=== PATIENT | male | born 1950 | race Caucasian/White ===

== ENCOUNTER 2017-12-04 09:59 | Inpatient (IN) | payer MEDICARE, OTHER ==
[~2017-12-04] VITALS: Ht 175.3 cm; Wt 79.4 kg
[~2017-12-04 09:59] MED LIST: 0.9 % SODIUM CHLORIDE 10 ML VIAL ONE
[2017-12-04] MEDS ORDERED: ASPI-803 PO (10:20)
[2017-12-04] MEDS ORDERED: normal saline 1000ml 1,000 ML IV ONE ×2 (10:40)
[2017-12-04 10:47] LABS: BASOPHILS % (AUTO) 0.7 % (0-1); EOSINOPHILS # (AUTO) 0.2 X10'3 (0-0.9); HEMATOCRIT 39.9 % (42.0-52.0); LYMPHOCYTES # (AUTO) 1.3 X10'3 (1.1-4.8); LYMPHOCYTES % (AUTO) 16.8 % (21-51); MEAN CORPUSCULAR HEMOGLOBIN 27.7 PG (27.0-31.0); MEAN CORPUSCULAR HGB CONC 32.5 % (33.0-36.5); MEAN CORPUSCULAR VOLUME 85.2 FL (78-98); MEAN PLATELET VOLUME 9.7 FL (7.4-10.4); MONOCYTES # (AUTO) 0.4 X10'3 (0-0.9); MONOCYTES % (AUTO) 5.8 % (2-12); NEUTROPHILS # (AUTO) 5.7 X10'3 (1.8-7.7); NEUTROPHILS % (AUTO) 74.7 % (42-75); PLATELET COUNT 371 X10'3 (140-440); RED BLOOD COUNT 4.68 X10'6 (4.70-6.10); RED CELL DISTRIBUTION WIDTH 14.3 % (11.5-14.5); WHITE BLOOD COUNT 7.6 X10'3 (4.5-11.0)
[2017-12-04 11:00] LABS: GIANT PLATELET FEW; INR 1.2 INR; LARGE PLATELETS FEW; PARTIAL THROMBOPLASTIN TIME 28 SECONDS (22-32); PLATELET ESTIMATE NORMAL; PROTHROMBIN TIME 12.2 SECONDS (9.0-12.0)
[2017-12-04 11:03] LABS: ALANINE AMINOTRANSFERASE 37 U/L (12-78); ALBUMIN 3.5 G/DL (3.4-5.0); ALBUMIN/GLOBULIN RATIO 0.9 (1.1-1.5); ALKALINE PHOSPHATASE 63 IU/L (46-116); ANION GAP 18 (8-16); ASPARTATE AMINO TRANSFERASE 40 U/L (10-37); BILIRUBIN,TOTAL 0.6 MG/DL (0.1-1.0); BLOOD UREA NITROGEN 12 MG/DL (7-18); BUN/CREATININE RATIO 8.7 (5.4-32.0); CALCIUM 8.9 MG/DL (8.5-10.1); CHLORIDE 89 MMOL/L (99-107); CREATININE 1.38 MG/DL (0.60-1.10); GLUCOSE 180 MG/DL (70-104); SODIUM 123 MMOL/L (135-145); TOTAL CARBON DIOXIDE 15.6 MMOL/L (24-32); TOTAL PROTEIN 7.6 G/DL (6.4-8.2); eGFR 52 ML/MIN
[2017-12-04] MEDS ORDERED: succinylcholine 20mg/ml inj IV ONE (11:04)
[2017-12-04] MEDS ORDERED: iohexol 350MG/ML 100ml bottle IV ONE (11:15)
[2017-12-04 11:16] LABS: ABG BASE EXCESS -13.4 mmol/L (-2.0-3.0); ABG HCO3 9.9 mmol/L (22.0-26.0); ABG OXYGEN SATURATION 97.2 % (95-98); ABG PCO2 (T) 18.7 mmHg (35.0-48.0); ABG PH (T) 7.343 (7.350-7.450); ABG PO2 (T) 99.2 mmHg (83-108); ALLEN'S TEST Positive; FCOHb 1.1 % (0.5-1.5); FMetHb 0.1 % (0.3-1.12); MINUTE VOLUME 18 L/min; RESPIRATORY RATE 18 b/min; RESPIRATORY RATE (OBSERVED) 18 b/min; TOTAL HEMOGLOBIN 12.9 G/dl (14.0-18.0)
[2017-12-04] MEDS: K, MAG and/or Phos replacement - Verify level? MC SCH (11:35)
[2017-12-04] MEDS ORDERED: magnesium 4gm in 100ml NS 100 ML IV PRN (11:35)
[2017-12-04] MEDS ORDERED: potassium Cl 40MEQ/NS 500ml 500 ML IV PRN ×2 (11:35)
[2017-12-04] MEDS ORDERED: magnesium 2GM in 50ml NS 50 ML IV PRN (11:35)
[2017-12-04] MEDS ORDERED: thiamine inj. 100 MG in normal saline 100ml IV soln 100 ML IV ONE (11:55)
[2017-12-04] MEDS ORDERED: OMEP40CA37 PO (11:59)
[2017-12-04] MEDS: pantoprazole 40 MG vial IV SCH (12:07)
[2017-12-04 12:27] LABS: CLARITY,URINE CLEAR (Clear); GLUCOSE, URINE NEGATIVE (Neg); KETONES,URINE NEGATIVE (Neg); LEUKOCYTE ESTERASE ,URINE NEGATIVE (Neg); NITRITES, URINE NEGATIVE (Neg); OCCULT BLOOD,URINE NEGATIVE (Neg); PH,URINE 5.5 (4.8-8.0); PROTEIN,URINE 30 mg/dl (Neg)
[2017-12-04 12:36] LABS: COLOR,URINE DARK YELLOW (Yellow); UA COLLECTION TYPE FOLEY CATH
[2017-12-04 12:40] LABS: BACTERIA,URINE NONE SEEN /HPF (Neg); MUCUS STRANDS FEW /LPF (Neg); RBC,URINE 0-2 /HPF (0-2); SQUAMOUS EPITHELIAL CELL,UR NONE SEEN /LPF (FEW); TRANSITIONAL EPI CELLS,URINE FEW /HPF; WBC,URINE 0-4 /HPF (0-4)
[2017-12-04 12:41] LABS: HYALINE CASTS >30 /LPF (NEGATIVE)
[2017-12-04 12:43] LABS: MAGNESIUM 1.8 MG/DL (1.5-2.4)
[2017-12-04] MEDS: sodium bicarbonate (8.4%) inj. 150 MEQ in dextrose 5%-water 1,000 ML IV SCH (13:03)
[2017-12-04] MEDS: folic acid inj. 2 MG, MVI, adult No.4 with vit. K 10 ML in dextrose 5% water 500ml 500 ML IV SCH ×3 (13:05)
[2017-12-04 19:00] VITALS: BP 112/76
[2017-12-04] MEDS: nicotine 21mg patch - 24 hr TD SCH (21:25)
[2017-12-04] MEDS: heparin, porcine 5000 units/ml vial SQ SCH (21:26)
[2017-12-04 22:14] VITALS: BP 110/88
[2017-12-04 23:07] VITALS: BP 107/87
[2017-12-05] VITALS (21 sets, daily range): BP systolic 102–130; BP diastolic 79–107
[2017-12-05] MEDS: temazepam 15mg capsule PO PRN
[2017-12-05 06:18] LABS: BASOPHILS % (AUTO) 0.2 % (0-1); EOSINOPHILS # (AUTO) 0.2 X10'3 (0-0.9); EOSINOPHILS % (AUTO) 1.9 % (0-6); HEMATOCRIT 36.8 % (42.0-52.0); HEMOGLOBIN 12.3 g/dl (14.0-17.9); LYMPHOCYTES # (AUTO) 1.2 X10'3 (1.1-4.8); LYMPHOCYTES % (AUTO) 14.6 % (21-51); MEAN CORPUSCULAR HEMOGLOBIN 28.2 PG (27.0-31.0); MEAN CORPUSCULAR HGB CONC 33.4 % (33.0-36.5); MEAN CORPUSCULAR VOLUME 84.3 FL (78-98); MEAN PLATELET VOLUME 10.2 FL (7.4-10.4); MONOCYTES # (AUTO) 0.7 X10'3 (0-0.9); MONOCYTES % (AUTO) 8.8 % (2-12); NEUTROPHILS # (AUTO) 6.2 X10'3 (1.8-7.7); NEUTROPHILS % (AUTO) 74.5 % (42-75); PLATELET COUNT 308 X10'3 (140-440); RED BLOOD COUNT 4.37 X10'6 (4.70-6.10); RED CELL DISTRIBUTION WIDTH 13.9 % (11.5-14.5); WHITE BLOOD COUNT 8.3 X10'3 (4.5-11.0)
[2017-12-05 06:31] LABS: INR 1.4 INR; PARTIAL THROMBOPLASTIN TIME 29 SECONDS (22-32); PROTHROMBIN TIME 14.5 SECONDS (9.0-12.0)
[2017-12-05 06:43] LABS: ALANINE AMINOTRANSFERASE 894 U/L (12-78); ALBUMIN 3.1 G/DL (3.4-5.0); ALBUMIN/GLOBULIN RATIO 0.9 (1.1-1.5); ALKALINE PHOSPHATASE 60 IU/L (46-116); ANION GAP 17 (8-16); BILIRUBIN,TOTAL 0.9 MG/DL (0.1-1.0); BLOOD UREA NITROGEN 14 MG/DL (7-18); BUN/CREATININE RATIO 14.6 (5.4-32.0); CALCIUM 8.4 MG/DL (8.5-10.1); CHLORIDE 91 MMOL/L (99-107); CREATININE 0.96 MG/DL (0.60-1.10); GLUCOSE 103 MG/DL (70-104); MAGNESIUM 1.6 MG/DL (1.5-2.4); POTASSIUM 4.6 MMOL/L (3.5-5.1); SODIUM 127 MMOL/L (135-145); TOTAL CARBON DIOXIDE 19.5 MMOL/L (24-32); TOTAL PROTEIN 6.6 G/DL (6.4-8.2); eGFR 79 ML/MIN
[2017-12-05 07:02] LABS: ASPARTATE AMINO TRANSFERASE 1695 U/L (10-37)
[2017-12-05 07:21] LABS: PLATELET ESTIMATE NORMAL
[2017-12-05 07:22] LABS: GIANT PLATELET FEW; HYPOCHROMASIA 1+; LARGE PLATELETS FEW; POLYCHROMASIA 1+
[2017-12-05 07:23] LABS: ELLIPTOCYTES 1+; TARGET CELLS 1+
[2017-12-05] MEDS: pantoprazole 40 MG vial IV SCH (08:00)
[2017-12-05] MEDS: heparin, porcine 5000 units/ml vial SQ SCH ×2 (08:01→20:02)
[2017-12-05] MEDS: nicotine 21mg patch - 24 hr TD SCH (08:01)
[2017-12-05] MEDS: folic acid inj. 2 MG, MVI, adult No.4 with vit. K 10 ML in dextrose 5% water 500ml 500 ML IV SCH ×3 (08:02)
[2017-12-05] MEDS: multivitamins, therapeutics tablet PO SCH (08:02)
[2017-12-05] MEDS: folic acid 1mg tablet PO SCH (08:02)
[2017-12-05] MEDS: thiamine 100mg tablet PO SCH (08:02)
[2017-12-05] MEDS: K, MAG and/or Phos replacement - Verify level? MC SCH (08:03)
[2017-12-05] MEDS: sodium bicarbonate (8.4%) inj. 150 MEQ in dextrose 5%-water 1,000 ML IV SCH (08:03)
[2017-12-05] MEDS ORDERED: levoFLOXACIN-Levaquin 500mg/D5 100 ML IV ONE (09:45)
[2017-12-05] MEDS: DOBUTamine-DoBUTrex 500mg/D5W 250 ML IV SCH (10:22)
[2017-12-05] MEDS: ipratropium/albuterol 3ml nebule NEB SCH ×4 (11:39→23:00)
[2017-12-05 14:45] LABS: ABG BASE EXCESS -1.2 mmol/L (-2.0-3.0); ABG HCO3 18.9 mmol/L (22.0-26.0); ABG OXYGEN SATURATION 95.7 % (95-98); ABG PCO2 (T) 20.8 mmHg (35.0-48.0); ABG PH (T) 7.576 (7.350-7.450); ABG PO2 (T) 76.2 mmHg (83-108); ALLEN'S TEST Positive; FCOHb 0.3 % (0.5-1.5); FMetHb 0.3 % (0.3-1.12); FO2Hb 95.1 % (94-100); RESPIRATORY RATE 12 b/min; TOTAL HEMOGLOBIN 12.5 G/dl (14.0-18.0)
[2017-12-05] MEDS ORDERED: LORazepam 2 mg/ml vial IV PRN (17:55)
[2017-12-05] MEDS: lactobacillus rhamnosus 10,000 MMU CELLS/CAPSULE PO SCH (20:02)
[2017-12-05] MEDS ORDERED: haloperidol lactate 5mg/ml inj IM ONE (21:50)
[2017-12-06] VITALS (24 sets, daily range): BP systolic 99–129; BP diastolic 72–98
[2017-12-06] MEDS: sodium bicarbonate (8.4%) inj. 150 MEQ in dextrose 5%-water 1,000 ML IV SCH ×2 (02:14→07:10)
[2017-12-06 04:46] LABS: ABG BASE EXCESS -0.2 mmol/L (-2.0-3.0); ABG HCO3 21.4 mmol/L (22.0-26.0); ABG OXYGEN SATURATION 96.3 % (95-98); ABG PCO2 (T) 25.8 mmHg (35.0-48.0); ABG PH (T) 7.534 (7.350-7.450); ABG PO2 (T) 79.8 mmHg (83-108); ALLEN'S TEST Positive; FCOHb 0.4 % (0.5-1.5); FMetHb 0.1 % (0.3-1.12); FO2Hb 95.8 % (94-100); PATIENT TEMPERATURE 36.3; RESPIRATORY RATE 12 b/min; TOTAL HEMOGLOBIN 12.8 G/dl (14.0-18.0)
[2017-12-06 05:31] LABS: INR 1.4 INR; PARTIAL THROMBOPLASTIN TIME 29 SECONDS (22-32)
[2017-12-06 05:37] LABS: BASOPHILS # (AUTO) 0.1 X10'3 (0-0.2); BASOPHILS % (AUTO) 0.7 % (0-1); EOSINOPHILS # (AUTO) 0.1 X10'3 (0-0.9); EOSINOPHILS % (AUTO) 0.8 % (0-6); HEMATOCRIT 35.9 % (42.0-52.0); HEMOGLOBIN 12.1 g/dl (14.0-17.9); LYMPHOCYTES # (AUTO) 1.2 X10'3 (1.1-4.8); LYMPHOCYTES % (AUTO) 12.3 % (21-51); MEAN CORPUSCULAR HGB CONC 33.6 % (33.0-36.5); MEAN CORPUSCULAR VOLUME 83.2 FL (78-98); MEAN PLATELET VOLUME 10.7 FL (7.4-10.4); MONOCYTES # (AUTO) 0.9 X10'3 (0-0.9); MONOCYTES % (AUTO) 8.7 % (2-12); NEUTROPHILS # (AUTO) 7.6 X10'3 (1.8-7.7); NEUTROPHILS % (AUTO) 77.5 % (42-75); PLATELET COUNT 283 X10'3 (140-440); RED BLOOD COUNT 4.32 X10'6 (4.70-6.10); RED CELL DISTRIBUTION WIDTH 14.3 % (11.5-14.5); WHITE BLOOD COUNT 9.9 X10'3 (4.5-11.0)
[2017-12-06 06:40] LABS: ALBUMIN 2.8 G/DL (3.4-5.0); ALBUMIN/GLOBULIN RATIO 0.8 (1.1-1.5); ALKALINE PHOSPHATASE 69 IU/L (46-116); ANION GAP 14 (8-16); BILIRUBIN,TOTAL 0.9 MG/DL (0.1-1.0); BLOOD UREA NITROGEN 18 MG/DL (7-18); BUN/CREATININE RATIO 14.9 (5.4-32.0); CALCIUM 8.4 MG/DL (8.5-10.1); CHLORIDE 89 MMOL/L (99-107); CREATININE 1.21 MG/DL (0.60-1.10); GLUCOSE 117 MG/DL (70-104); MAGNESIUM 1.5 MG/DL (1.5-2.4); POTASSIUM 4.3 MMOL/L (3.5-5.1); SODIUM 123 MMOL/L (135-145); TOTAL CARBON DIOXIDE 20.4 MMOL/L (24-32); TOTAL PROTEIN 6.3 G/DL (6.4-8.2); eGFR 60 ML/MIN
[2017-12-06 06:43] LABS: ALANINE AMINOTRANSFERASE 1315 U/L (12-78); ASPARTATE AMINO TRANSFERASE 1909 U/L (10-37)
[2017-12-06 06:58] LABS: PLATELET ESTIMATE NORMAL; POLYCHROMASIA 1+; TARGET CELLS FEW
[2017-12-06 06:59] LABS: SCHISTOCYTES FEW
[2017-12-06] MEDS ORDERED: levoFLOXACIN-Levaquin 500mg/D5 100 ML IV SCH (08:00)
[2017-12-06] MEDS: lactobacillus rhamnosus 10,000 MMU CELLS/CAPSULE PO SCH ×2 (08:22→19:44)
[2017-12-06] MEDS: thiamine 100mg tablet PO SCH (08:23)
[2017-12-06] MEDS: folic acid 1mg tablet PO SCH (08:23)
[2017-12-06] MEDS: multivitamins, therapeutics tablet PO SCH (08:24)
[2017-12-06] MEDS: pantoprazole 40mg Tablet.DR PO SCH (08:24)
[2017-12-06] MEDS: heparin, porcine 5000 units/ml vial SQ SCH ×2 (08:26→19:51)
[2017-12-06] MEDS: nicotine 21mg patch - 24 hr TD SCH (08:27)
[2017-12-06] MEDS: K, MAG and/or Phos replacement - Verify level? MC SCH (08:29)
[2017-12-06] MEDS: ipratropium/albuterol 3ml nebule NEB SCH ×6 (08:48→23:27)
[2017-12-06] MEDS ORDERED: furosemide 40mg/4ml inj IV ONE (08:50)
[2017-12-06] MEDS ORDERED: FLU VACC QS2017-18 36MOS UP/PF 60 MCG/0.5 ML SYRINGE IMVAC ONE (10:00)
[2017-12-06] MEDS ORDERED: pneumococcal 23-VAL P-sac vacc 25 mcg/0.5ml vial IMVAC ONE (10:00)
[2017-12-06] MEDS: levoFLOXACIN 500mg tablet PO SCH (11:17)
[2017-12-06] MEDS: methylPREDNISolone sod succ 125mg/2ml vial IV SCH ×2 (14:50→19:44)
[2017-12-06] MEDS: furosemide 40mg/4ml inj IV SCH (16:47)
[2017-12-06] MEDS ORDERED: sodium phosphate inj. 30 MMOL in dextrose 5%-water 250 ML IV PRN (17:28)
[2017-12-06] MEDS ORDERED: sodium phosphate inj. 15 MMOL in dextrose 5%-water 150 ML IV PRN (17:28)
[2017-12-06] MEDS ORDERED: potassium Cl 40MEQ/NS 500ml 500 ML IV PRN ×2 (17:30)
[2017-12-06] MEDS ORDERED: Neutra Phos packet PO PRN (17:30)
[2017-12-06] MEDS ORDERED: potassium Cl 20 mEq SR tablet PO PRN ×2 (17:30)
[2017-12-06] MEDS: spironolactone 25 MG tablet PO SCH (19:45)
[2017-12-06] MEDS: temazepam 15mg capsule PO PRN (22:27)
[2017-12-07] VITALS (18 sets, daily range): BP systolic 88–138; BP diastolic 66–96
[2017-12-07] MEDS: furosemide 40mg/4ml inj IV SCH ×3 (00:44→20:55)
[2017-12-07] MEDS: DOBUTamine-DoBUTrex 500mg/D5W 250 ML IV SCH (00:51)
[2017-12-07] MEDS: methylPREDNISolone sod succ 125mg/2ml vial IV SCH ×4 (02:03→20:55)
[2017-12-07] MEDS: ipratropium/albuterol 3ml nebule NEB SCH ×6 (02:43→23:43)
[2017-12-07 06:00] LABS: BASOPHILS % (AUTO) 0 % (0-1); EOSINOPHILS # (AUTO) 0.1 X10'3 (0-0.9); EOSINOPHILS % (AUTO) 1.2 % (0-6); HEMATOCRIT 34.6 % (42.0-52.0); HEMOGLOBIN 11.5 g/dl (14.0-17.9); LYMPHOCYTES # (AUTO) 0.4 X10'3 (1.1-4.8); LYMPHOCYTES % (AUTO) 4.4 % (21-51); MEAN CORPUSCULAR HEMOGLOBIN 27.7 PG (27.0-31.0); MEAN CORPUSCULAR HGB CONC 33.2 % (33.0-36.5); MEAN CORPUSCULAR VOLUME 83.3 FL (78-98); MEAN PLATELET VOLUME 10.4 FL (7.4-10.4); MONOCYTES # (AUTO) 0.1 X10'3 (0-0.9); MONOCYTES % (AUTO) 1.6 % (2-12); NEUTROPHILS # (AUTO) 7.6 X10'3 (1.8-7.7); NEUTROPHILS % (AUTO) 92.8 % (42-75); PLATELET COUNT 273 X10'3 (140-440); RED BLOOD COUNT 4.16 X10'6 (4.70-6.10); RED CELL DISTRIBUTION WIDTH 14.1 % (11.5-14.5); WHITE BLOOD COUNT 8.2 X10'3 (4.5-11.0)
[2017-12-07 06:10] LABS: INR 1.3 INR; PARTIAL THROMBOPLASTIN TIME 27 SECONDS (22-32); PROTHROMBIN TIME 13.3 SECONDS (9.0-12.0)
[2017-12-07 06:17] LABS: LARGE PLATELETS FEW; PLATELET ESTIMATE NORMAL
[2017-12-07 06:18] LABS: TARGET CELLS FEW
[2017-12-07 06:30] LABS: ALANINE AMINOTRANSFERASE 1115 U/L (12-78); ALBUMIN 2.9 G/DL (3.4-5.0); ALBUMIN/GLOBULIN RATIO 0.9 (1.1-1.5); ALKALINE PHOSPHATASE 71 IU/L (46-116); ANION GAP 12 (8-16); ASPARTATE AMINO TRANSFERASE 965 U/L (10-37); BILIRUBIN,TOTAL 0.8 MG/DL (0.1-1.0); BLOOD UREA NITROGEN 17 MG/DL (7-18); BUN/CREATININE RATIO 13.9 (5.4-32.0); CALCIUM 8.6 MG/DL (8.5-10.1); CHLORIDE 90 MMOL/L (99-107); CREATININE 1.22 MG/DL (0.60-1.10); GLUCOSE 132 MG/DL (70-104); MAGNESIUM 1.4 MG/DL (1.5-2.4); PHOSPHORUS 3.8 MG/DL (2.3-4.5); SODIUM 129 MMOL/L (135-145); TOTAL CARBON DIOXIDE 27.3 MMOL/L (24-32); TOTAL PROTEIN 6.3 G/DL (6.4-8.2); eGFR 60 ML/MIN
[2017-12-07] MEDS: spironolactone 25 MG tablet PO SCH ×2 (07:55→20:55)
[2017-12-07] MEDS: folic acid 1mg tablet PO SCH (07:56)
[2017-12-07] MEDS: lactobacillus rhamnosus 10,000 MMU CELLS/CAPSULE PO SCH ×2 (07:56→20:56)
[2017-12-07] MEDS: multivitamins, therapeutics tablet PO SCH (07:56)
[2017-12-07] MEDS: pantoprazole 40mg Tablet.DR PO SCH (07:56)
[2017-12-07] MEDS: thiamine 100mg tablet PO SCH (07:56)
[2017-12-07] MEDS: nicotine 21mg patch - 24 hr TD SCH (07:57)
[2017-12-07] MEDS: K and/or MAG REPLACEMENT MC SCH (08:00)
[2017-12-07] MEDS: K, MAG and/or Phos replacement - Verify level? MC SCH (08:00)
[2017-12-07] MEDS: heparin, porcine 5000 units/ml vial SQ SCH ×2 (08:13→20:57)
[2017-12-07] MEDS: levoFLOXACIN 500mg tablet PO SCH (10:38)
[2017-12-07] MEDS ORDERED: carVEDilol 3.125mg tablet PO ONE (11:20)
[2017-12-07] MEDS ORDERED: pneumococcal 23-VAL P-sac vacc 25 mcg/0.5ml vial IMVAC ONE (12:00)
[2017-12-07] MEDS ORDERED: carVEDilol 3.125mg tablet PO SCH (20:00)
[2017-12-07] MEDS: carVEDilol 3.125mg tablet PO SCH (20:56)
[2017-12-08] VITALS (11 sets, daily range): BP systolic 93–120; BP diastolic 72–94
[2017-12-08] MEDS: temazepam 15mg capsule PO PRN ×2 (00:02→23:40)
[2017-12-08] MEDS: methylPREDNISolone sod succ 125mg/2ml vial IV SCH ×4 (02:26→19:54)
[2017-12-08 02:43] LABS: INR 1.2 INR; PARTIAL THROMBOPLASTIN TIME 25 SECONDS (22-32); PROTHROMBIN TIME 12.5 SECONDS (9.0-12.0)
[2017-12-08 02:47] LABS: ALANINE AMINOTRANSFERASE 983 U/L (12-78); ALBUMIN 2.8 G/DL (3.4-5.0); ALBUMIN/GLOBULIN RATIO 0.8 (1.1-1.5); ALKALINE PHOSPHATASE 67 IU/L (46-116); ANION GAP 10 (8-16); ASPARTATE AMINO TRANSFERASE 598 U/L (10-37); BILIRUBIN,TOTAL 0.8 MG/DL (0.1-1.0); BLOOD UREA NITROGEN 26 MG/DL (7-18); BUN/CREATININE RATIO 20.3 (5.4-32.0); CALCIUM 8.5 MG/DL (8.5-10.1); CHLORIDE 89 MMOL/L (99-107); CREATININE 1.28 MG/DL (0.60-1.10); GLUCOSE 146 MG/DL (70-104); MAGNESIUM 2.3 MG/DL (1.5-2.4); PHOSPHORUS 4.7 MG/DL (2.3-4.5); SODIUM 124 MMOL/L (135-145); TOTAL CARBON DIOXIDE 25.1 MMOL/L (24-32); TOTAL PROTEIN 6.2 G/DL (6.4-8.2); eGFR 56 ML/MIN
[2017-12-08 02:58] LABS: BASOPHILS % (AUTO) 0 % (0-1); EOSINOPHILS # (AUTO) 0.1 X10'3 (0-0.9); HEMATOCRIT 33.2 % (42.0-52.0); HEMOGLOBIN 10.9 g/dl (14.0-17.9); LYMPHOCYTES # (AUTO) 0.4 X10'3 (1.1-4.8); LYMPHOCYTES % (AUTO) 3.1 % (21-51); MEAN CORPUSCULAR HEMOGLOBIN 27.5 PG (27.0-31.0); MEAN CORPUSCULAR HGB CONC 32.8 % (33.0-36.5); MEAN PLATELET VOLUME 10.7 FL (7.4-10.4); MONOCYTES # (AUTO) 0.4 X10'3 (0-0.9); MONOCYTES % (AUTO) 3.2 % (2-12); NEUTROPHILS # (AUTO) 12.2 X10'3 (1.8-7.7); NEUTROPHILS % (AUTO) 92.7 % (42-75); PLATELET COUNT 254 X10'3 (140-440); RED BLOOD COUNT 3.95 X10'6 (4.70-6.10); RED CELL DISTRIBUTION WIDTH 14.1 % (11.5-14.5); WHITE BLOOD COUNT 13.1 X10'3 (4.5-11.0)
[2017-12-08] MEDS: ipratropium/albuterol 3ml nebule NEB SCH ×6 (03:46→23:10)
[2017-12-08] MEDS: K and/or MAG REPLACEMENT MC SCH (07:34)
[2017-12-08] MEDS: K, MAG and/or Phos replacement - Verify level? MC SCH (07:35)
[2017-12-08] MEDS: pantoprazole 40mg Tablet.DR PO SCH (07:45)
[2017-12-08] MEDS: nicotine 21mg patch - 24 hr TD SCH (07:46)
[2017-12-08] MEDS: thiamine 100mg tablet PO SCH (07:46)
[2017-12-08] MEDS: lactobacillus rhamnosus 10,000 MMU CELLS/CAPSULE PO SCH ×2 (07:46→19:56)
[2017-12-08] MEDS: multivitamins, therapeutics tablet PO SCH (07:46)
[2017-12-08] MEDS: folic acid 1mg tablet PO SCH (07:46)
[2017-12-08] MEDS: carVEDilol 3.125mg tablet PO SCH ×2 (07:46→19:57)
[2017-12-08] MEDS: heparin, porcine 5000 units/ml vial SQ SCH ×2 (07:48→19:55)
[2017-12-08] MEDS: furosemide 40mg/4ml inj IV SCH ×2 (07:48→19:53)
[2017-12-08] MEDS: spironolactone 25 MG tablet PO SCH ×2 (07:48→19:56)
[2017-12-08] MEDS ORDERED: lisinopril 2.5mg tablet PO SCH (08:00)
[2017-12-08] MEDS: levoFLOXACIN 500mg tablet PO SCH (12:52)
[2017-12-08] MEDS: DOBUTamine-DoBUTrex 500mg/D5W 250 ML IV SCH ×2 (14:17→17:00)
[2017-12-08] MEDS ORDERED: potassium Cl 20 mEq SR tablet PO ONE (20:00)
[2017-12-08] MEDS: lisinopril 2.5mg tablet PO SCH (21:24)
[2017-12-08] MEDS: HYDROcodone/acetaminophen 10/325mg tab PO PRN (23:41)
[2017-12-09] VITALS (24 sets, daily range): BP systolic 87–108; BP diastolic 52–83
[2017-12-09] MEDS: methylPREDNISolone sod succ 125mg/2ml vial IV SCH ×3 (02:04→13:52)
[2017-12-09] MEDS: ipratropium/albuterol 3ml nebule NEB SCH ×6 (03:00→23:09)
[2017-12-09 05:06] LABS: BASOPHILS % (AUTO) 0 % (0-1); EOSINOPHILS # (AUTO) 0.1 X10'3 (0-0.9); EOSINOPHILS % (AUTO) 1.2 % (0-6); HEMATOCRIT 33.6 % (42.0-52.0); LYMPHOCYTES # (AUTO) 0.6 X10'3 (1.1-4.8); MEAN CORPUSCULAR HEMOGLOBIN 27.4 PG (27.0-31.0); MEAN CORPUSCULAR HGB CONC 32.6 % (33.0-36.5); MONOCYTES # (AUTO) 0.4 X10'3 (0-0.9); MONOCYTES % (AUTO) 3.6 % (2-12); NEUTROPHILS # (AUTO) 9.5 X10'3 (1.8-7.7); NEUTROPHILS % (AUTO) 89.2 % (42-75); PLATELET COUNT 226 X10'3 (140-440); RED CELL DISTRIBUTION WIDTH 13.8 % (11.5-14.5); WHITE BLOOD COUNT 10.6 X10'3 (4.5-11.0)
[2017-12-09 05:17] LABS: INR 1.2 INR; PARTIAL THROMBOPLASTIN TIME 26 SECONDS (22-32); PROTHROMBIN TIME 12.8 SECONDS (9.0-12.0)
[2017-12-09 05:55] LABS: ALANINE AMINOTRANSFERASE 800 U/L (12-78); ALBUMIN 2.8 G/DL (3.4-5.0); ALBUMIN/GLOBULIN RATIO 0.8 (1.1-1.5); ALKALINE PHOSPHATASE 64 IU/L (46-116); ANION GAP 12 (8-16); ASPARTATE AMINO TRANSFERASE 355 U/L (10-37); BILIRUBIN,TOTAL 0.8 MG/DL (0.1-1.0); BLOOD UREA NITROGEN 41 MG/DL (7-18); BUN/CREATININE RATIO 23.4 (5.4-32.0); CALCIUM 8.4 MG/DL (8.5-10.1); CHLORIDE 88 MMOL/L (99-107); CREATININE 1.75 MG/DL (0.60-1.10); GLUCOSE 131 MG/DL (70-104); MAGNESIUM 2.1 MG/DL (1.5-2.4); PHOSPHORUS 5.8 MG/DL (2.3-4.5); POTASSIUM 4.3 MMOL/L (3.5-5.1); SODIUM 126 MMOL/L (135-145); TOTAL CARBON DIOXIDE 26.4 MMOL/L (24-32); TOTAL PROTEIN 6.3 G/DL (6.4-8.2); eGFR 39 ML/MIN
[2017-12-09 06:24] LABS: LARGE PLATELETS FEW; PLATELET ESTIMATE NORMAL
[2017-12-09] MEDS: K and/or MAG REPLACEMENT MC SCH (06:53)
[2017-12-09] MEDS: K, MAG and/or Phos replacement - Verify level? MC SCH (06:53)
[2017-12-09] MEDS: furosemide 40mg/4ml inj IV SCH (08:00)
[2017-12-09] MEDS: carVEDilol 3.125mg tablet PO SCH ×2 (08:00→19:58)
[2017-12-09] MEDS: spironolactone 25 MG tablet PO SCH (08:30)
[2017-12-09] MEDS: nicotine 21mg patch - 24 hr TD SCH (09:58)
[2017-12-09] MEDS: multivitamins, therapeutics tablet PO SCH (09:58)
[2017-12-09] MEDS: pantoprazole 40mg Tablet.DR PO SCH (09:58)
[2017-12-09] MEDS: lactobacillus rhamnosus 10,000 MMU CELLS/CAPSULE PO SCH ×2 (09:59→19:59)
[2017-12-09] MEDS: folic acid 1mg tablet PO SCH (09:59)
[2017-12-09] MEDS: thiamine 100mg tablet PO SCH (10:00)
[2017-12-09] MEDS: HYDROcodone/acetaminophen 10/325mg tab PO PRN ×2 (10:01→23:30)
[2017-12-09] MEDS: heparin, porcine 5000 units/ml vial SQ SCH ×2 (10:02→20:01)
[2017-12-09] MEDS ORDERED: aminophylline 250mg/10ml inj. IV PRN (10:15)
[2017-12-09] MEDS ORDERED: regadenoson 0.4mg/5ml syringe IV ONE ×2 (10:15→14:43)
[2017-12-09] MEDS ORDERED: metoprolol tartrate 1mg/ml inj IV PRN (10:15)
[2017-12-09] MEDS ORDERED: nitroGLYCERIN 0.4mg SUBLingual tab SL PRN (10:15)
[2017-12-09] MEDS: DOBUTamine-DoBUTrex 500mg/D5W 250 ML IV SCH ×2 (10:26→16:30)
[2017-12-09] MEDS: levoFLOXACIN 500mg tablet PO SCH (10:33)
[2017-12-09] MEDS: aspirin 325mg tablet PO SCH (10:34)
[2017-12-09] MEDS ORDERED: aminophylline inj. 0 ML IV ONE (14:43)
[2017-12-09] MEDS: methylPREDNISolone sod succ/PF 40mg inj. IV SCH (19:58)
[2017-12-09] MEDS: lisinopril 2.5mg tablet PO SCH (21:00)
[2017-12-09 21:11] LABS: ANION GAP 7 (8-16); BLOOD UREA NITROGEN 42 MG/DL (7-18); CALCIUM 8.6 MG/DL (8.5-10.1); CHLORIDE 89 MMOL/L (99-107); CREATININE 1.45 MG/DL (0.60-1.10); GLUCOSE 137 MG/DL (70-104); POTASSIUM 4.5 MMOL/L (3.5-5.1); SODIUM 126 MMOL/L (135-145); TOTAL CARBON DIOXIDE 29.8 MMOL/L (24-32); eGFR 49 ML/MIN
[2017-12-09 21:29] LABS: MAGNESIUM 2.1 MG/DL (1.5-2.4)
[2017-12-10] VITALS (10 sets, daily range): BP systolic 92–104; BP diastolic 69–86
[2017-12-10] MEDS: ipratropium/albuterol 3ml nebule NEB SCH ×3 (03:00→11:26)
[2017-12-10 06:02] LABS: HEMATOCRIT 34.9 % (42.0-52.0); HEMOGLOBIN 11.5 g/dl (14.0-17.9); MEAN CORPUSCULAR HEMOGLOBIN 27.7 PG (27.0-31.0); MEAN CORPUSCULAR VOLUME 84.1 FL (78-98); MEAN PLATELET VOLUME 11.2 FL (7.4-10.4); PLATELET COUNT 215 X10'3 (140-440); RED BLOOD COUNT 4.15 X10'6 (4.70-6.10); RED CELL DISTRIBUTION WIDTH 13.8 % (11.5-14.5); WHITE BLOOD COUNT 11.6 X10'3 (4.5-11.0)
[2017-12-10 06:27] LABS: INR 1.2 INR; PARTIAL THROMBOPLASTIN TIME 25 SECONDS (22-32)
[2017-12-10 06:28] LABS: ALANINE AMINOTRANSFERASE 594 U/L (12-78); ALBUMIN 2.8 G/DL (3.4-5.0); ALBUMIN/GLOBULIN RATIO 0.8 (1.1-1.5); ALKALINE PHOSPHATASE 58 IU/L (46-116); ANION GAP 7 (8-16); ASPARTATE AMINO TRANSFERASE 172 U/L (10-37); BLOOD UREA NITROGEN 39 MG/DL (7-18); BUN/CREATININE RATIO 27.7 (5.4-32.0); CALCIUM 8.4 MG/DL (8.5-10.1); CHLORIDE 88 MMOL/L (99-107); CREATININE 1.41 MG/DL (0.60-1.10); GLUCOSE 127 MG/DL (70-104); PHOSPHORUS 4.4 MG/DL (2.3-4.5); POTASSIUM 3.8 MMOL/L (3.5-5.1); SODIUM 123 MMOL/L (135-145); TOTAL CARBON DIOXIDE 28.3 MMOL/L (24-32); TOTAL PROTEIN 6.2 G/DL (6.4-8.2); eGFR 50 ML/MIN
[2017-12-10 06:42] LABS: TOTAL CELLS COUNTED 100
[2017-12-10 06:43] LABS: ANISOCYTOSIS 1+; LARGE PLATELETS FEW; MICROCYTOSIS 1+; PLATELET ESTIMATE NORMAL; TARGET CELLS 1+
[2017-12-10] MEDS: nicotine 21mg patch - 24 hr TD SCH (07:35)
[2017-12-10] MEDS: methylPREDNISolone sod succ/PF 40mg inj. IV SCH (07:37)
[2017-12-10] MEDS: furosemide 40mg/4ml inj IV SCH (07:38)
[2017-12-10] MEDS: multivitamins, therapeutics tablet PO SCH (07:39)
[2017-12-10] MEDS: aspirin 325mg tablet PO SCH (07:39)
[2017-12-10] MEDS: pantoprazole 40mg Tablet.DR PO SCH (07:39)
[2017-12-10] MEDS: folic acid 1mg tablet PO SCH (07:40)
[2017-12-10] MEDS: thiamine 100mg tablet PO SCH (07:40)
[2017-12-10] MEDS: carVEDilol 3.125mg tablet PO SCH (07:40)
[2017-12-10] MEDS: lactobacillus rhamnosus 10,000 MMU CELLS/CAPSULE PO SCH (07:40)
[2017-12-10] MEDS: spironolactone 25 MG tablet PO SCH (07:44)
[2017-12-10] MEDS: heparin, porcine 5000 units/ml vial SQ SCH (07:45)
[2017-12-10] MEDS: HYDROcodone/acetaminophen 10/325mg tab PO PRN (07:45)
[2017-12-10] MEDS: K, MAG and/or Phos replacement - Verify level? MC SCH (08:00)
[2017-12-10] MEDS ORDERED: levoFLOXACIN 500mg tablet PO SCH (11:00)
[2017-12-10] MEDS ORDERED: bisacodyl 5mg tablet.DR PO PRN (15:10)
[2017-12-10] MEDS ORDERED: LEVO500T89 PO (15:31)
[2017-12-10] MEDS ORDERED: HEPA500017 SQ (15:31)
[2017-12-10] MEDS ORDERED: PRED10TA23 PO (15:31)
[2017-12-10] MEDS ORDERED: LISI2.5T2 PO (15:31)
[2017-12-10] MEDS ORDERED: FURO40TA4 PO (15:31)
[2017-12-10] MEDS ORDERED: HYDR-3972 PO (15:31)
[2017-12-10] MEDS ORDERED: TEMA15CA PO (15:31)
[2017-12-10] MEDS ORDERED: SPIR25TA3 PO (15:31)
[2017-12-10] MEDS ORDERED: COR3.125T PO (15:31)
[2017-12-10] MEDS ORDERED: NITR0.4T51 SL (15:31)
[2017-12-10] MEDS ORDERED: IPRA3AMP9 NEB (15:31)
[2017-12-10] MEDS ORDERED: NICO-687 TD (15:31)
[2017-12-10] MEDS ORDERED: ASPI-1 PO (15:31)
[2017-12-10] MEDS ORDERED: docusate sod 100mg capsule PO SCH (20:00)
== END 2017-12-10 18:00 | DRG 291 ==
LOC: ER 09:59 → ED HOLD 11:35 → EDBEDREQ 18:30 → ICU 2S 19:15 → PCU 3S 12-07 13:00
PROVIDERS: ADMIT Internal Medicine Critical Care Medicine; ATTEND Internal Medicine Critical Care Medicine
PROC: 5A09457 Assistance with Respiratory Ventilation, 24-96 Consecutive Hours, Continuous Positive Airway Pressure (ICD-10-PCS; principal; 2017-12-04)
PROC: 4A02XM4 Measurement of Cardiac Total Activity, External Approach (ICD-10-PCS; 2017-12-09)
PROC: 3E073KZ Introduction of Other Diagnostic Substance into Coronary Artery, Percutaneous Approach (ICD-10-PCS; 2017-12-09)
DX: I11.0 Hypertensive heart disease with heart failure (principal); J96.21 Acute and chronic respiratory failure with hypoxia; N17.9 Acute kidney failure, unspecified; E86.0 Dehydration; E87.2 Acidosis; I48.0 Paroxysmal atrial fibrillation; I42.9 Cardiomyopathy, unspecified; E87.1 Hypo-osmolality and hyponatremia; B19.20 Unspecified viral hepatitis C without hepatic coma; F10.20 Alcohol dependence, uncomplicated; J98.11 Atelectasis; I50.23 Acute on chronic systolic (congestive) heart failure; F17.210 Nicotine dependence, cigarettes, uncomplicated; Z79.82 Long term (current) use of aspirin; Z79.899 Other long term (current) drug therapy; Z88.0 Allergy status to penicillin; Z71.41 Alcohol abuse counseling and surveillance of alcoholic; Z23 Encounter for immunization; Z71.6 Tobacco abuse counseling
CPT/HCPCS: 36415; 36600; 71045; 78452; 80048; 80053; 81001; 82803; 82948; 83605; 83735; 83880; 84100; 84145; 84439; 84443; 84484; 85018; 85025; 85610; 85730; 87040; 87070; 90732; 93005; 93017; 93306; 94640; 94660; 94667; 94668; 94760; 96360; 97110; 97116; 97162; 97530; 99291; A4315; A6213; A6257; A9500; C1758; C9113; J0280; J0330; J1250; J1630; J1644; J1940; J1956; J2060; J2785; J2920; J2930; J3475; J3490; J7030; J7060; Q2037; Q9967

== ENCOUNTER 2021-09-15 12:15 | Inpatient (IN) | payer OTHER, MEDICARE ==
[~2021-09-15] VITALS: Ht 182.9 cm; Wt 68.2 kg
[~2021-09-15 12:15] MED LIST changes: -0.9 % SODIUM CHLORIDE 10 ML VIAL ONE; +ASPI-1 PO; +CARV25TA PO; +ERGO500014 PO; +FOLI1TAB2 PO; +LISI2.5T14 PO; +NICO-687 TD; +NITR0.4T51 SL; +heparin 10,000 units/1 ML INJ ONE; +sodium bicarbonate (8.4%) 1 mEq/ml syringe ONE
[2021-09-15 13:03] LABS: BASOPHILS # (AUTO) 0.1 X10'3 (0-0.2); BASOPHILS % (AUTO) 1.1 % (0-1); EOSINOPHILS # (AUTO) 0.5 X10'3 (0-0.9); HEMATOCRIT 33.7 % (42.0-52.0); HEMOGLOBIN 10.8 g/dl (14.0-17.9); LYMPHOCYTES # (AUTO) 1.8 X10'3 (1.1-4.8); MEAN CORPUSCULAR HEMOGLOBIN 25.7 PG (27.0-31.0); MEAN CORPUSCULAR VOLUME 80.3 FL (78-98); MEAN PLATELET VOLUME 9.3 FL (7.4-10.4); MONOCYTES # (AUTO) 0.6 X10'3 (0-0.9); MONOCYTES % (AUTO) 6.9 % (2-12); NEUTROPHILS # (AUTO) 5.3 X10'3 (1.8-7.7); PLATELET COUNT 313 X10'3 (140-440); RED BLOOD COUNT 4.19 X10'6 (4.70-6.10); RED CELL DISTRIBUTION WIDTH 19.5 % (11.5-14.5); WHITE BLOOD COUNT 8.3 X10'3 (4.5-11.0)
[2021-09-15 13:18] LABS: APTT 29 SECONDS (22-32); D-DIMER 2.06 MG/L FEU (0-0.50)
[2021-09-15 13:21] LABS: ALANINE AMINOTRANSFERASE 26 U/L (12-78); ALBUMIN 3.6 G/DL (3.4-5.0); ALBUMIN/GLOBULIN RATIO 0.9 (1.1-1.5); ALKALINE PHOSPHATASE 99 IU/L (46-116); ANION GAP 10 (8-16); ASPARTATE AMINO TRANSFERASE 23 U/L (10-37); BILIRUBIN,TOTAL 0.4 MG/DL (0.1-1.0); BLOOD UREA NITROGEN 12 MG/DL (7-18); BUN/CREATININE RATIO 11.4 (5.4-32.0); CALCIUM 9.2 MG/DL (8.5-10.1); CHLORIDE 105 MMOL/L (99-107); CREATININE 1.05 MG/DL (0.60-1.10); GLUCOSE 94 MG/DL (70-104); POTASSIUM 3.8 MMOL/L (3.5-5.1); SODIUM 138 MMOL/L (135-145); TOTAL CARBON DIOXIDE 23.3 MMOL/L (24-32); TOTAL PROTEIN 7.4 G/DL (6.4-8.2); eGFR 70 ML/MIN
[2021-09-15] MEDS ORDERED: iohexol 350MG/ML 100ml bottle IV ONE (13:34)
[2021-09-15 13:50] LABS: ANISOCYTOSIS 2+; PLATELET ESTIMATE NORMAL
[2021-09-15 13:51] LABS: BURR CELLS 2+; SCHISTOCYTES 1+
[2021-09-15 13:52] LABS: ELLIPTOCYTES FEW; TARGET CELLS FEW
[2021-09-15 13:53] LABS: ACANTHOCYTES 1+
[2021-09-15] MEDS ORDERED: furosemide 10 MG/1 ML 10ml inj IV ONE (14:30)
[2021-09-15] MEDS ORDERED: furosemide 40mg/4ml inj IV ONE (14:30)
[2021-09-15] MEDS ORDERED: MULT-1085 PO (15:26)
[2021-09-15] MEDS ORDERED: PANT20TA18 PO (15:26)
[2021-09-15] MEDS ORDERED: HYDR-3965 PO (15:26)
[2021-09-15] MEDS ORDERED: MAGN400O6 PO (15:26)
[2021-09-15] MEDS ORDERED: CLOP75TA9 PO (15:26)
[2021-09-15] MEDS ORDERED: ASPI-920 PO (15:26)
[2021-09-15] MEDS ORDERED: BISA10SU60 RC (15:26)
[2021-09-15] MEDS ORDERED: GABA300C PO (15:26)
[2021-09-15] MEDS ORDERED: ATOR-2 PO (15:26)
[2021-09-15] MEDS ORDERED: METO-539 PO (15:26)
[2021-09-15] MEDS ORDERED: heparin 10,000 units/1 ML INJ IV ONE ×2 (16:00→16:05)
[2021-09-15] MEDS: heparin 25,000 UNIT/250ml bag 250 ML IV SCH (16:18)
[2021-09-15] MEDS ORDERED: bisacodyl 10mg suppository rectal RC PRN ×2 (18:20→18:25)
[2021-09-15] MEDS ORDERED: magnesium hydroxide 30ml (MOM) UD suspension PO PRN ×2 (18:20→18:25)
[2021-09-15] MEDS ORDERED: magnesium Cl slow-release 64mg tablet PO PRN (18:25)
[2021-09-15] MEDS ORDERED: diphenhydrAMINE 25mg capsule PO PRN (18:25)
[2021-09-15] MEDS ORDERED: potassium CL 10mEq/100ml bag 100 ML IV PRN (18:25)
[2021-09-15] MEDS ORDERED: magnesium 4gm in 100ml NS 100 ML IV PRN (18:25)
[2021-09-15] MEDS ORDERED: morphine 2 MG/ML inj. syringe IV PRN ×2 (18:25)
[2021-09-15] MEDS ORDERED: acetaminophen 325mg tablet PO PRN ×2 (18:25)
[2021-09-15] MEDS ORDERED: potassium Cl 20 mEq SR tablet PO PRN (18:25)
[2021-09-15] MEDS ORDERED: ondansetron/PF 4mg/2ml inj IV PRN (18:25)
[2021-09-15] MEDS ORDERED: magnesium 2GM in 50ml NS 50 ML IV PRN (18:25)
[2021-09-15] MEDS ORDERED: mag hydrox/Alum hydrox/simeth 30ml oral suspension PO PRN (18:25)
[2021-09-15] MEDS ORDERED: HYDROcodone/acetaminophen 5mg/325mg tablet PO PRN (18:25)
[2021-09-15] MEDS ORDERED: acetaminophen 650mg rectal suppository RC PRN (18:25)
[2021-09-15] MEDS: normal saline 1000ml 1,000 ML IV SCH (19:18)
[2021-09-15] MEDS: HYDROcodone/acetaminophen 10/325mg tab PO PRN (19:32)
[2021-09-15] MEDS: K and/or MAG REPLACEMENT MC SCH (20:00)
[2021-09-15] MEDS: docusate sod 100mg capsule PO SCH (20:09)
[2021-09-15] MEDS: furosemide 10 MG/1 ML 10ml inj IV SCH (20:10)
[2021-09-15] MEDS: atorvastatin 20mg tablet PO SCH (20:58)
[2021-09-15 23:00] LABS: APTT 51 SECONDS (22-32)
[2021-09-15 23:25] VITALS: BP 108/79
[2021-09-16] VITALS (7 sets, daily range): BP systolic 73–89; BP diastolic 59–62
[2021-09-16] MEDS: gabapentin 300mg capsule PO SCH ×3 (00:10→15:00)
[2021-09-16 04:21] LABS: BASOPHILS % (AUTO) 0.7 % (0-1); EOSINOPHILS # (AUTO) 0.5 X10'3 (0-0.9); EOSINOPHILS % (AUTO) 6.3 % (0-6); HEMOGLOBIN 9.8 g/dl (14.0-17.9); LYMPHOCYTES # (AUTO) 1.9 X10'3 (1.1-4.8); LYMPHOCYTES % (AUTO) 25.8 % (21-51); MEAN CORPUSCULAR HEMOGLOBIN 25.9 PG (27.0-31.0); MEAN CORPUSCULAR HGB CONC 32.7 g/dL (33.0-36.5); MEAN CORPUSCULAR VOLUME 79.2 FL (78-98); MEAN PLATELET VOLUME 9.1 FL (7.4-10.4); MONOCYTES # (AUTO) 0.6 X10'3 (0-0.9); MONOCYTES % (AUTO) 8.1 % (2-12); NEUTROPHILS # (AUTO) 4.4 X10'3 (1.8-7.7); NEUTROPHILS % (AUTO) 59.1 % (42-75); PLATELET COUNT 264 X10'3 (140-440); RED BLOOD COUNT 3.79 X10'6 (4.70-6.10); RED CELL DISTRIBUTION WIDTH 19.5 % (11.5-14.5); WHITE BLOOD COUNT 7.4 X10'3 (4.5-11.0)
[2021-09-16 04:40] LABS: ALANINE AMINOTRANSFERASE 16 U/L (12-78); ALBUMIN/GLOBULIN RATIO 0.9 (1.1-1.5); ALKALINE PHOSPHATASE 84 IU/L (46-116); ANION GAP 9 (8-16); ASPARTATE AMINO TRANSFERASE 17 U/L (10-37); BILIRUBIN,TOTAL 0.3 MG/DL (0.1-1.0); BLOOD UREA NITROGEN 14 MG/DL (7-18); BUN/CREATININE RATIO 11.9 (5.4-32.0); CALCIUM 8.9 MG/DL (8.5-10.1); CHLORIDE 103 MMOL/L (99-107); CHOL/HDL RATIO 3.9 (0.00-4.99); CHOLESTEROL 157 MG/DL (0-200); CREATININE 1.18 MG/DL (0.60-1.10); GLUCOSE 87 MG/DL (70-104); HDL CHOLESTEROL 40 MG/DL (35-60); LDL CHOLESTEROL 97 MG/DL (50-100); MAGNESIUM 1.5 MG/DL (1.5-2.4); PHOSPHORUS 4.8 MG/DL (2.3-4.5); POTASSIUM 3.4 MMOL/L (3.5-5.1); SODIUM 135 MMOL/L (135-145); TOTAL CARBON DIOXIDE 23.4 MMOL/L (24-32); TOTAL PROTEIN 6.2 G/DL (6.4-8.2); TRIGLYCERIDES 54 MG/DL (20-135); eGFR 61 ML/MIN
[2021-09-16] MEDS ORDERED: heparin 10,000 units/1 ML INJ IV PRN (04:55)
[2021-09-16] MEDS: furosemide 10 MG/1 ML 10ml inj IV SCH ×2 (08:00→21:28)
[2021-09-16] MEDS: K and/or MAG REPLACEMENT MC SCH ×2 (08:00→20:00)
[2021-09-16] MEDS: metoprolol succinate 25mg (24-HOUR) SR. Tablet PO SCH (08:00)
[2021-09-16] MEDS ORDERED: pantoprazole 40mg Tablet.DR PO SCH (08:00)
[2021-09-16] MEDS: multivitamins, therapeutics tablet PO SCH (08:05)
[2021-09-16] MEDS: docusate sod 100mg capsule PO SCH ×2 (08:05→21:28)
[2021-09-16] MEDS: aspirin 81mg tab.chew PO SCH (08:05)
[2021-09-16] MEDS: HYDROcodone/acetaminophen 10/325mg tab PO PRN ×3 (08:07→21:56)
[2021-09-16] MEDS ORDERED: insulin glargine (Lantus) pen - multi-dose SQ PRN (08:40)
[2021-09-16] MEDS ORDERED: dextrose 50%-water 50ml dispensing syringe IV PRN (08:40)
[2021-09-16] MEDS ORDERED: MESSAGE TO PHARMACY IJ ONE (08:40)
[2021-09-16] MEDS ORDERED: MESSAGE TO NURSING PO ONE ×5 (08:40→10:00)
[2021-09-16 10:06] LABS: APTT 47 SECONDS (22-32)
[2021-09-16] MEDS: mupirocin 2% nasal ointment 1gm UD NS SCH (20:00)
[2021-09-16] MEDS: potassium Cl 20 mEq SR tablet PO PRN (21:27)
[2021-09-16] MEDS: atorvastatin 20mg tablet PO SCH (21:28)
[2021-09-16] MEDS: heparin 25,000 UNIT/250ml bag 250 ML IV SCH (21:48)
[2021-09-17] VITALS (9 sets, daily range): BP systolic 82–102; BP diastolic 52–76
[2021-09-17] MEDS: gabapentin 300mg capsule PO SCH ×3 (00:29→23:51)
[2021-09-17 06:34] LABS: BASOPHILS % (AUTO) 0.4 % (0-1); EOSINOPHILS # (AUTO) 0.5 X10'3 (0-0.9); EOSINOPHILS % (AUTO) 6.4 % (0-6); HEMATOCRIT 29.1 % (42.0-52.0); HEMOGLOBIN 9.7 g/dl (14.0-17.9); LYMPHOCYTES # (AUTO) 1.8 X10'3 (1.1-4.8); LYMPHOCYTES % (AUTO) 22.6 % (21-51); MEAN CORPUSCULAR HEMOGLOBIN 26.1 PG (27.0-31.0); MEAN CORPUSCULAR HGB CONC 33.3 g/dL (33.0-36.5); MEAN CORPUSCULAR VOLUME 78.4 FL (78-98); MEAN PLATELET VOLUME 9.4 FL (7.4-10.4); MONOCYTES # (AUTO) 0.6 X10'3 (0-0.9); MONOCYTES % (AUTO) 7.6 % (2-12); PLATELET COUNT 262 X10'3 (140-440); RED BLOOD COUNT 3.71 X10'6 (4.70-6.10); RED CELL DISTRIBUTION WIDTH 20.2 % (11.5-14.5); WHITE BLOOD COUNT 7.9 X10'3 (4.5-11.0)
[2021-09-17] MEDS: potassium Cl 20 mEq SR tablet PO PRN (06:51)
[2021-09-17 07:07] LABS: ALANINE AMINOTRANSFERASE 16 U/L (12-78); ALBUMIN 3.1 G/DL (3.4-5.0); ALBUMIN/GLOBULIN RATIO 0.9 (1.1-1.5); ALKALINE PHOSPHATASE 88 IU/L (46-116); ANION GAP 11 (8-16); ASPARTATE AMINO TRANSFERASE 15 U/L (10-37); BILIRUBIN,TOTAL 0.3 MG/DL (0.1-1.0); BLOOD UREA NITROGEN 16 MG/DL (7-18); BUN/CREATININE RATIO 14.5 (5.4-32.0); CALCIUM 8.9 MG/DL (8.5-10.1); CHLORIDE 101 MMOL/L (99-107); GLUCOSE 86 MG/DL (70-104); MAGNESIUM 1.5 MG/DL (1.5-2.4); PHOSPHORUS 5.6 MG/DL (2.3-4.5); SODIUM 135 MMOL/L (135-145); TOTAL PROTEIN 6.6 G/DL (6.4-8.2); eGFR 66 ML/MIN
[2021-09-17] MEDS: HYDROcodone/acetaminophen 10/325mg tab PO PRN ×3 (07:18→23:47)
[2021-09-17] MEDS: pantoprazole 40mg Tablet.DR PO SCH (07:18)
[2021-09-17] MEDS: docusate sod 100mg capsule PO SCH ×2 (07:18→20:56)
[2021-09-17] MEDS: aspirin 81mg tab.chew PO SCH (07:18)
[2021-09-17] MEDS: multivitamins, therapeutics tablet PO SCH (07:18)
[2021-09-17] MEDS: K and/or MAG REPLACEMENT MC SCH ×2 (07:20→20:00)
[2021-09-17] MEDS: mupirocin 2% nasal ointment 1gm UD NS SCH ×2 (07:21→20:00)
[2021-09-17] MEDS: metoprolol succinate 25mg (24-HOUR) SR. Tablet PO SCH (08:00)
[2021-09-17 10:36] LABS: ABG BASE EXCESS -1.7 mmol/L (-2.0-2.0); ABG HCO3 21.3 mmol/L (22.0-26.0); ABG OXYGEN SATURATION 94.4 % (94-97); ABG PCO2 (T) 30.2 mmHg (35.0-48.0); ABG PO2 (T) 72.1 mmHg (75.0-100.0); ALLEN'S TEST POSITIVE; FCOHb 0.3 % (0.0-3.9); FMetHb 0.2 % (0.0-1.5); FO2Hb 93.9 % (94-97); TOTAL HEMOGLOBIN 10.7 G/dl (14.0-18.0)
[2021-09-17] MEDS ORDERED: HUMAN IV ONE ×4 (13:15)
[2021-09-17] MEDS ORDERED: INSULIN REGULAR IV ONE ×4 (13:15)
[2021-09-17] MEDS ORDERED: SODIUM CHLORIDE IV ONE ×4 (13:15)
[2021-09-17] MEDS ORDERED: [UNRECOGNIZED DRUG - OTHER] IV ONE ×4 (13:15)
[2021-09-17] MEDS ORDERED: glucagon, human recombinant 1mg kit SUBCUT PRN (14:00)
[2021-09-17] MEDS ORDERED: dextrose 50%-water 50ml dispensing syringe IV PRN ×2 (14:00)
[2021-09-17] MEDS ORDERED: dextrose ORAL solution 15 GM/59 ML bottle PO PRN ×2 (14:00)
[2021-09-17] MEDS ORDERED: insulin Lispro (HumaLOG) vial - multi-dose SQ SCH (14:00)
[2021-09-17] MEDS ORDERED: famotidine 20mg tablet PO ONE (17:10)
[2021-09-17] MEDS: normal saline 1000ml 1,000 ML IV SCH (18:25)
[2021-09-17] MEDS: atorvastatin 20mg tablet PO SCH (20:56)
[2021-09-17] MEDS: insulin glargine (Lantus) pen - multi-dose SQ SCH (21:00)
[2021-09-18] VITALS (21 sets, daily range): BP systolic 79–152; BP diastolic 48–89
[2021-09-18] MEDS ORDERED: vancomycin/NS 1 GM ADD-VANTAGE 250 ML IV ONE (05:30)
[2021-09-18] MEDS ORDERED: Insulin Reg/NS 100units/100mL 100 ML IV SCH ×2 (05:30)
[2021-09-18] MEDS ORDERED: cefazolin/dext.iso 2gm/50ml 50 ML IV ONE (05:30)
[2021-09-18] MEDS ORDERED: gabapentin 400mg capsule PO ONE (05:30)
[2021-09-18] MEDS ORDERED: epiNEPHrine 1 mg/ml inj ONE (05:31)
[2021-09-18 06:11] LABS: BASOPHILS % (AUTO) 0.4 % (0-1); EOSINOPHILS # (AUTO) 0.4 X10'3 (0-0.9); EOSINOPHILS % (AUTO) 6.1 % (0-6); HEMATOCRIT 28.5 % (42.0-52.0); HEMOGLOBIN 9.5 g/dl (14.0-17.9); LYMPHOCYTES # (AUTO) 1.2 X10'3 (1.1-4.8); MEAN CORPUSCULAR HGB CONC 33.3 g/dL (33.0-36.5); MEAN CORPUSCULAR VOLUME 78.2 FL (78-98); MEAN PLATELET VOLUME 9.5 FL (7.4-10.4); MONOCYTES # (AUTO) 0.6 X10'3 (0-0.9); MONOCYTES % (AUTO) 8.6 % (2-12); NEUTROPHILS # (AUTO) 4.8 X10'3 (1.8-7.7); NEUTROPHILS % (AUTO) 67.9 % (42-75); PLATELET COUNT 255 X10'3 (140-440); RED BLOOD COUNT 3.64 X10'6 (4.70-6.10); RED CELL DISTRIBUTION WIDTH 19.5 % (11.5-14.5); WHITE BLOOD COUNT 7.1 X10'3 (4.5-11.0)
[2021-09-18 06:43] LABS: ALANINE AMINOTRANSFERASE 18 U/L (12-78); ALBUMIN 2.8 G/DL (3.4-5.0); ALBUMIN/GLOBULIN RATIO 0.8 (1.1-1.5); ALKALINE PHOSPHATASE 80 IU/L (46-116); ANION GAP 8 (8-16); ASPARTATE AMINO TRANSFERASE 15 U/L (10-37); BILIRUBIN,TOTAL 0.3 MG/DL (0.1-1.0); BLOOD UREA NITROGEN 13 MG/DL (7-18); CALCIUM 8.5 MG/DL (8.5-10.1); CHLORIDE 103 MMOL/L (99-107); CREATININE 0.93 MG/DL (0.60-1.10); GLUCOSE 141 MG/DL (70-104); MAGNESIUM 1.4 MG/DL (1.5-2.4); PHOSPHORUS 4.7 MG/DL (2.3-4.5); POTASSIUM 4.1 MMOL/L (3.5-5.1); SODIUM 135 MMOL/L (135-145); TOTAL CARBON DIOXIDE 23.8 MMOL/L (24-32); TOTAL PROTEIN 6.2 G/DL (6.4-8.2); eGFR 81 ML/MIN
[2021-09-18] MEDS ORDERED: famotidine 20mg tablet PO ONE (06:45)
[2021-09-18] MEDS ORDERED: LORazepam 2 mg/ml vial IV ONE (06:45)
[2021-09-18] MEDS: metoprolol succinate 25mg (24-HOUR) SR. Tablet PO SCH (08:00)
[2021-09-18] MEDS: aspirin 81mg tab.chew PO SCH (08:00)
[2021-09-18] MEDS ORDERED: SUFENTANIL CITRATE 50 MCG/ML 2ml ampule IV ONE (08:00)
[2021-09-18] MEDS: K and/or MAG REPLACEMENT MC SCH ×2 (08:00→20:00)
[2021-09-18] MEDS: gabapentin 300mg capsule PO SCH ×2 (08:00→16:00)
[2021-09-18] MEDS ORDERED: MIDAZolam 1 MG/ML 5ML VIAL ONE (08:00)
[2021-09-18] MEDS: multivitamins, therapeutics tablet PO SCH (08:00)
[2021-09-18] MEDS: docusate sod 100mg capsule PO SCH ×2 (08:00→20:00)
[2021-09-18] MEDS ORDERED: propofol inj 20 ML IV ONE (08:00)
[2021-09-18] MEDS: mupirocin 2% nasal ointment 1gm UD NS SCH ×2 (08:00→20:33)
[2021-09-18] MEDS: pantoprazole 40mg Tablet.DR PO SCH (08:00)
[2021-09-18] MEDS ORDERED: sevoflurane 250ml liquid IH ONE (08:34)
[2021-09-18] MEDS ORDERED: protamine sulf. 10mg/ml inj. IV ONE (08:34)
[2021-09-18 09:26] LABS: ABG BASE EXCESS -7.1 mmol/L (-2.0-2.0); ABG HCO3 18.3 mmol/L (22.0-26.0); ABG OXYGEN SATURATION 95.7 % (94-97); ABG PCO2 36.3 mmHg (35.0-48.0); ABG PO2 89.2 mmHg (75.0-100.0); CL (ABG) 107 mmol/L (98-110); FCOHb 0.5 % (0.0-3.9); FMetHb 0.3 % (0.0-1.5); FO2Hb 94.9 % (94-97); GLUCOSE (ABG) 80 mg/dl (70-105); IONIZED CA (ABG) 1.15 mmol/L (1.10-1.43); K (ABG) 4.1 mmol/L (3.5-5.0); TOTAL HEMOGLOBIN 10.1 G/dl (14.0-18.0)
[2021-09-18 09:55] LABS: ABG BASE EXCESS VENOUS -7.7 mmol/L (-2.0 - 2.0); ABG HCO3 VENOUS 19.9 mmol/L (21.0-28.0); ABG PCO2 VENOUS 50.2 mmHg (41.0-54.0); ABG PO2 VENOUS 48.3 mmHg (25.0-35.0); CL (ABG) 106 mmol/L (98-110); FCOHb VENOUS 0.8 %; FHHb VENOUS 26.9 %; FMetHb VENOUS 0.1 % (0.0 - 0.5); FO2Hb VENOUS 72.2 %; GLUCOSE (ABG) 115 mg/dl (70-105); IONIZED CA (ABG) 1.13 mmol/L (1.10-1.43); K (ABG) 3.5 mmol/L (3.5-5.0); TOTAL HEMOGLOBIN 10.2 G/dl (14.0-18.0)
[2021-09-18 10:35] LABS: ABG BASE EXCESS VENOUS -10.8 mmol/L (-2.0 - 2.0); ABG HCO3 VENOUS 17.7 mmol/L (21.0-28.0); ABG PO2 VENOUS 41.8 mmHg (25.0-35.0); CL (ABG) 105 mmol/L (98-110); FCOHb VENOUS 0.9 %; FHHb VENOUS 41.3 %; FMetHb VENOUS 0.1 % (0.0 - 0.5); FO2Hb VENOUS 57.7 %; GLUCOSE (ABG) 213 mg/dl (70-105); IONIZED CA (ABG) 1.11 mmol/L (1.10-1.43); K (ABG) 3.9 mmol/L (3.5-5.0); TOTAL HEMOGLOBIN 9.8 G/dl (14.0-18.0)
[2021-09-18 11:24] LABS: ABG BASE EXCESS -7.1 mmol/L (-2.0-2.0); ABG HCO3 19.4 mmol/L (22.0-26.0); ABG OXYGEN SATURATION 88.6 % (94-97); ABG PCO2 43.5 mmHg (35.0-48.0); ABG PO2 68.8 mmHg (75.0-100.0); CL (ABG) 107 mmol/L (98-110); FCOHb 1.3 % (0.0-3.9); FMetHb 0.3 % (0.0-1.5); FO2Hb 87.2 % (94-97); GLUCOSE (ABG) 261 mg/dl (70-105); IONIZED CA (ABG) 1.05 mmol/L (1.10-1.43); K (ABG) 3.3 mmol/L (3.5-5.0); TOTAL HEMOGLOBIN 8.4 G/dl (14.0-18.0)
[2021-09-18 11:39] LABS: ABG BASE EXCESS VENOUS -6.6 mmol/L (-2.0 - 2.0); ABG PCO2 VENOUS 52.4 mmHg (41.0-54.0); ABG PO2 VENOUS 41.7 mmHg (25.0-35.0); CL (ABG) 107 mmol/L (98-110); FCOHb VENOUS 1.1 %; FHHb VENOUS 36.8 %; FMetHb VENOUS 0.3 % (0.0 - 0.5); FO2Hb VENOUS 61.8 %; GLUCOSE (ABG) 248 mg/dl (70-105); IONIZED CA (ABG) 1.04 mmol/L (1.10-1.43); K (ABG) 3.3 mmol/L (3.5-5.0); TOTAL HEMOGLOBIN 8.8 G/dl (14.0-18.0)
[2021-09-18] MEDS ORDERED: potassium CL 10mEq/100ml bag 100 ML IV PRN (11:50)
[2021-09-18] MEDS ORDERED: bisacodyl 10mg suppository rectal RC PRN (11:50)
[2021-09-18] MEDS ORDERED: dextrose 50%-water 50ml dispensing syringe IV PRN (11:50)
[2021-09-18] MEDS ORDERED: sodium phosphate inj. 15 MMOL in dextrose 5%-water 250 ML IV PRN (11:50)
[2021-09-18] MEDS ORDERED: potassium Cl 20 mEq SR tablet PO PRN (11:50)
[2021-09-18] MEDS ORDERED: magnesium citrate 296ml oral solution PO PRN (11:50)
[2021-09-18] MEDS ORDERED: Neutra Phos packet PO PRN (11:50)
[2021-09-18] MEDS ORDERED: nitroGLYCERIN-Tridil 50MG/D5W 250 ML IV PRN (11:50)
[2021-09-18] MEDS ORDERED: magnesium 2GM in 50ml NS 50 ML IV PRN (11:50)
[2021-09-18] MEDS ORDERED: morphine 2 MG/ML inj. syringe IV PRN (11:50)
[2021-09-18] MEDS ORDERED: magnesium hydroxide 30ml (MOM) UD suspension PO PRN (11:50)
[2021-09-18] MEDS ORDERED: epiNEPHrine inj 5 MG in normal saline 250ml IV soln 245 ML IV PRN (11:50)
[2021-09-18] MEDS ORDERED: insulin glargine (Lantus) pen - multi-dose SQ PRN (11:50)
[2021-09-18] MEDS ORDERED: mineral oil 133ml enema RC PRN (11:50)
[2021-09-18] MEDS ORDERED: metoclopramide 5 mg/ml inj IV PRN (11:50)
[2021-09-18] MEDS ORDERED: ondansetron/PF 4mg/2ml inj IV PRN (11:50)
[2021-09-18] MEDS ORDERED: sodium phosphate inj. 30 MMOL in dextrose 5%-water 250 ML IV PRN (11:50)
[2021-09-18] MEDS ORDERED: NORepinephrine 8mg/ 250ml NS 250 ML IV PRN (11:50)
[2021-09-18] MEDS ORDERED: niCARDipine-NS 40mg/200ml IVPB 200 ML IV PRN (11:50)
[2021-09-18] MEDS ORDERED: acetaminophen 325mg tablet PO PRN ×2 (11:50)
[2021-09-18] MEDS ORDERED: rocuronium 10mg/ml inj IV ONE (12:02)
[2021-09-18 12:49] LABS: BASOPHILS # (AUTO) 0.1 X10'3 (0-0.2); BASOPHILS % (AUTO) 0.3 % (0-1); EOSINOPHILS # (AUTO) 0.4 X10'3 (0-0.9); EOSINOPHILS % (AUTO) 1.8 % (0-6); HEMATOCRIT 28.9 % (42.0-52.0); HEMOGLOBIN 9.4 g/dl (14.0-17.9); LYMPHOCYTES # (AUTO) 1.4 X10'3 (1.1-4.8); LYMPHOCYTES % (AUTO) 6.4 % (21-51); MEAN CORPUSCULAR HGB CONC 32.4 g/dL (33.0-36.5); MEAN CORPUSCULAR VOLUME 80.2 FL (78-98); MEAN PLATELET VOLUME 9.1 FL (7.4-10.4); MONOCYTES # (AUTO) 0.5 X10'3 (0-0.9); MONOCYTES % (AUTO) 2.5 % (2-12); NEUTROPHILS # (AUTO) 19.1 X10'3 (1.8-7.7); PLATELET COUNT 205 X10'3 (140-440); RED CELL DISTRIBUTION WIDTH 19.7 % (11.5-14.5); WHITE BLOOD COUNT 21.5 X10'3 (4.5-11.0)
[2021-09-18 12:52] LABS: ABG BASE EXCESS -8.2 mmol/L (-2.0-2.0); ABG HCO3 17.7 mmol/L (22.0-26.0); ABG OXYGEN SATURATION 91.5 % (94-97); ABG PO2 (T) 61.7 mmHg (75.0-100.0); FCOHb 0.1 % (0.0-3.9); FMetHb 0.3 % (0.0-1.5); FO2Hb 91.1 % (94-97); PATIENT TEMPERATURE 34.7; PEEP 5 cm H2O; RESPIRATORY RATE 14 b/min; TIDAL VOLUME 500 mL; TOTAL HEMOGLOBIN 10.4 G/dl (14.0-18.0)
[2021-09-18] MEDS ORDERED: gabapentin 300mg capsule PO SCH (13:00)
[2021-09-18 13:03] LABS: APTT 33 SECONDS (22-32)
[2021-09-18 13:07] LABS: ALANINE AMINOTRANSFERASE 17 U/L (12-78); ALBUMIN 2.9 G/DL (3.4-5.0); ALBUMIN/GLOBULIN RATIO 0.9 (1.1-1.5); ALKALINE PHOSPHATASE 66 IU/L (46-116); ANION GAP 13 (8-16); ASPARTATE AMINO TRANSFERASE 27 U/L (10-37); BILIRUBIN,TOTAL 0.7 MG/DL (0.1-1.0); BLOOD UREA NITROGEN 11 MG/DL (7-18); BUN/CREATININE RATIO 10.8 (5.4-32.0); CALCIUM 7.7 MG/DL (8.5-10.1); CHLORIDE 107 MMOL/L (99-107); CREATININE 1.02 MG/DL (0.60-1.10); GLUCOSE 233 MG/DL (70-104); MAGNESIUM 1.2 MG/DL (1.5-2.4); PHOSPHORUS 4.6 MG/DL (2.3-4.5); SODIUM 143 MMOL/L (135-145); TOTAL PROTEIN 6.1 G/DL (6.4-8.2); eGFR 72 ML/MIN
[2021-09-18] MEDS: potassium Cl 20mEq/100mL bag 100 ML IV PRN ×2 (13:19→14:07)
[2021-09-18 13:49] LABS: ANISOCYTOSIS 2+; PLATELET ESTIMATE NORMAL
[2021-09-18 13:50] LABS: ACANTHOCYTES 2+; BURR CELLS 1+; SCHISTOCYTES 1+
[2021-09-18 13:51] LABS: ELLIPTOCYTES FEW; MICROCYTOSIS 1+
[2021-09-18] MEDS: albumin (Human) 5% 250ml 250 ML IV PRN ×5 (15:13→19:15)
[2021-09-18] MEDS: ceFAZolin/D5W- 1GM premix 50 ML IV SCH ×2 (16:21→23:59)
[2021-09-18 18:33] LABS: BASOPHILS % (AUTO) 0.2 % (0-1); EOSINOPHILS % (AUTO) 0.1 % (0-6); HEMATOCRIT 24.9 % (42.0-52.0); LYMPHOCYTES # (AUTO) 0.4 X10'3 (1.1-4.8); LYMPHOCYTES % (AUTO) 2.6 % (21-51); MEAN CORPUSCULAR HEMOGLOBIN 25.7 PG (27.0-31.0); MEAN CORPUSCULAR HGB CONC 32.1 g/dL (33.0-36.5); MEAN CORPUSCULAR VOLUME 80.2 FL (78-98); MEAN PLATELET VOLUME 9.1 FL (7.4-10.4); MONOCYTES % (AUTO) 7.1 % (2-12); NEUTROPHILS # (AUTO) 12.5 X10'3 (1.8-7.7); PLATELET COUNT 175 X10'3 (140-440); RED BLOOD COUNT 3.11 X10'6 (4.70-6.10); WHITE BLOOD COUNT 13.9 X10'3 (4.5-11.0)
[2021-09-18] MEDS: morphine 4 MG/ML inj SYRINge IV PRN ×2 (18:33→23:15)
[2021-09-18 18:38] LABS: ALBUMIN 3.4 G/DL (3.4-5.0); ANION GAP 12 (8-16); BLOOD UREA NITROGEN 15 MG/DL (7-18); BUN/CREATININE RATIO 13.6 (5.4-32.0); CALCIUM 7.7 MG/DL (8.5-10.1); CHLORIDE 109 MMOL/L (99-107); GLUCOSE 124 MG/DL (70-104); MAGNESIUM 1.3 MG/DL (1.5-2.4); PHOSPHORUS 3.7 MG/DL (2.3-4.5); SODIUM 141 MMOL/L (135-145); TOTAL CARBON DIOXIDE 20.5 MMOL/L (24-32); eGFR 66 ML/MIN
[2021-09-18 18:52] LABS: POTASSIUM 6.5 MMOL/L (3.5-5.1)
[2021-09-18] MEDS ORDERED: pantoprazole IV 40 MG in dextrose 5%-water 100 ML IV SCH (20:00)
[2021-09-18] MEDS ORDERED: DOBUTamine-DoBUTrex 500mg/D5W 250 ML IV ONE (20:04)
[2021-09-18] MEDS ORDERED: DOBUTamine-DoBUTrex 500mg/D5W 250 ML IV PRN ×2 (20:05→20:08)
[2021-09-18 20:12] LABS: ABG BASE EXCESS -5.8 mmol/L (-2.0-2.0); ABG HCO3 18.7 mmol/L (22.0-26.0); ABG OXYGEN SATURATION 97.3 % (94-97); ABG PCO2 (T) 30.9 mmHg (35.0-48.0); ABG PO2 (T) 93.6 mmHg (75.0-100.0); ALLEN'S TEST n; FMetHb 0.1 % (0.0-1.5); FO2Hb 97.2 % (94-97); PATIENT TEMPERATURE 35.6; PEEP 8 cm H2O; RESPIRATORY RATE 14 b/min; TIDAL VOLUME 500 mL; TOTAL HEMOGLOBIN 8.8 G/dl (14.0-18.0)
[2021-09-18] MEDS: sodium chloride 0.45% 1,000 ML IV SCH (20:22)
[2021-09-18] MEDS: sennosides/docusate sodium tablet PO SCH (20:33)
[2021-09-18] MEDS: vancomycin/NS 1 GM ADD-VANTAGE 250 ML IV SCH (20:33)
[2021-09-18] MEDS: atorvastatin 20mg tablet PO SCH (20:34)
[2021-09-18] MEDS: insulin glargine (Lantus) pen - multi-dose SQ SCH (20:34)
[2021-09-18] MEDS: Insulin Reg/NS 100units/100mL 100 ML IV SCH (20:37)
[2021-09-18] MEDS ORDERED: atorvastatin 10mg tablet PO SCH (21:00)
[2021-09-18 21:53] LABS: ALANINE AMINOTRANSFERASE 18 U/L (12-78); ALBUMIN 3.7 G/DL (3.4-5.0); ALBUMIN/GLOBULIN RATIO 1.8 (1.1-1.5); ALKALINE PHOSPHATASE 50 IU/L (46-116); ANION GAP 11 (8-16); ASPARTATE AMINO TRANSFERASE 24 U/L (10-37); BILIRUBIN,TOTAL 0.8 MG/DL (0.1-1.0); BLOOD UREA NITROGEN 17 MG/DL (7-18); BUN/CREATININE RATIO 14.2 (5.4-32.0); CALCIUM 7.6 MG/DL (8.5-10.1); CHLORIDE 108 MMOL/L (99-107); GLUCOSE 131 MG/DL (70-104); MAGNESIUM 1.3 MG/DL (1.5-2.4); PHOSPHORUS 3.4 MG/DL (2.3-4.5); SODIUM 139 MMOL/L (135-145); TOTAL CARBON DIOXIDE 20.1 MMOL/L (24-32); TOTAL PROTEIN 5.8 G/DL (6.4-8.2); eGFR 60 ML/MIN
[2021-09-18 21:55] LABS: POTASSIUM 6.4 MMOL/L (3.5-5.1)
[2021-09-18] MEDS ORDERED: calcium chloride inj. 1,000 MG in normal saline 100ml IV soln 100 ML IV ONE (22:05)
[2021-09-18] MEDS ORDERED: calcium chloride 100 MG/1 ML inj IV ONE (22:10)
[2021-09-18] MEDS: magnesium 4gm in 100ml NS 100 ML IV PRN (22:35)
[2021-09-19] VITALS (27 sets, daily range): BP systolic 82–102; BP diastolic 49–72
[2021-09-19 01:36] LABS: BASOPHILS % (AUTO) 0.3 % (0-1); EOSINOPHILS % (AUTO) 0 % (0-6); HEMATOCRIT 23.1 % (42.0-52.0); HEMOGLOBIN 7.5 g/dl (14.0-17.9); LYMPHOCYTES # (AUTO) 0.5 X10'3 (1.1-4.8); LYMPHOCYTES % (AUTO) 5.6 % (21-51); MEAN CORPUSCULAR HEMOGLOBIN 25.9 PG (27.0-31.0); MEAN CORPUSCULAR HGB CONC 32.5 g/dL (33.0-36.5); MEAN CORPUSCULAR VOLUME 79.8 FL (78-98); MEAN PLATELET VOLUME 9.2 FL (7.4-10.4); MONOCYTES # (AUTO) 0.7 X10'3 (0-0.9); MONOCYTES % (AUTO) 7.4 % (2-12); NEUTROPHILS # (AUTO) 7.7 X10'3 (1.8-7.7); NEUTROPHILS % (AUTO) 86.7 % (42-75); PLATELET COUNT 142 X10'3 (140-440); RED BLOOD COUNT 2.89 X10'6 (4.70-6.10); RED CELL DISTRIBUTION WIDTH 20.2 % (11.5-14.5); WHITE BLOOD COUNT 8.9 X10'3 (4.5-11.0)
[2021-09-19 01:47] LABS: APTT 34 SECONDS (22-32)
[2021-09-19 01:48] LABS: ALANINE AMINOTRANSFERASE 17 U/L (12-78); ALBUMIN 3.5 G/DL (3.4-5.0); ALBUMIN/GLOBULIN RATIO 1.5 (1.1-1.5); ALKALINE PHOSPHATASE 50 IU/L (46-116); ANION GAP 10 (8-16); ASPARTATE AMINO TRANSFERASE 22 U/L (10-37); BILIRUBIN,TOTAL 0.5 MG/DL (0.1-1.0); BLOOD UREA NITROGEN 17 MG/DL (7-18); BUN/CREATININE RATIO 15.6 (5.4-32.0); CALCIUM 8.6 MG/DL (8.5-10.1); CHLORIDE 108 MMOL/L (99-107); CREATININE 1.09 MG/DL (0.60-1.10); GLUCOSE 117 MG/DL (70-104); MAGNESIUM 2.5 MG/DL (1.5-2.4); PHOSPHORUS 3.2 MG/DL (2.3-4.5); SODIUM 138 MMOL/L (135-145); TOTAL CARBON DIOXIDE 19.7 MMOL/L (24-32); TOTAL PROTEIN 5.8 G/DL (6.4-8.2); eGFR 67 ML/MIN
[2021-09-19 01:56] LABS: POTASSIUM 6.1 MMOL/L (3.5-5.1)
[2021-09-19] MEDS: morphine 4 MG/ML inj SYRINge IV PRN (03:19)
[2021-09-19 04:59] LABS: ABG BASE EXCESS -6.1 mmol/L (-2.0-2.0); ABG HCO3 17.5 mmol/L (22.0-26.0); ABG OXYGEN SATURATION 97.1 % (94-97); ABG PCO2 (T) 26.5 mmHg (35.0-48.0); ABG PO2 (T) 94.6 mmHg (75.0-100.0); FCOHb 0.3 % (0.0-3.9); FMetHb 0.5 % (0.0-1.5); FO2Hb 96.3 % (94-97); PATIENT TEMPERATURE 36.3; PEEP 5 cm H2O; RESPIRATORY RATE 8 b/min; TIDAL VOLUME 500 mL; TOTAL HEMOGLOBIN 8.3 G/dl (14.0-18.0)
[2021-09-19] MEDS: aspirin 325mg tablet, delayed-release (Ecotrin) PO SCH (08:00)
[2021-09-19] MEDS: sennosides/docusate sodium tablet PO SCH ×2 (08:00→19:46)
[2021-09-19] MEDS: docusate sod 100mg capsule PO SCH ×2 (08:00→19:45)
[2021-09-19] MEDS: mupirocin 2% nasal ointment 1gm UD NS SCH ×3 (08:00→19:46)
[2021-09-19] MEDS: K and/or MAG REPLACEMENT MC SCH ×2 (08:00→20:00)
[2021-09-19] MEDS: multivitamins, therapeutics tablet PO SCH (08:00)
[2021-09-19] MEDS ORDERED: metoprolol tartrate 12.5mg (1/2 tablet) PO SCH (08:00)
[2021-09-19] MEDS: ceFAZolin/D5W- 1GM premix 50 ML IV SCH ×3 (08:02→23:30)
[2021-09-19] MEDS: pantoprazole IV 40 MG in normal saline 100ml IV soln 100 ML IV SCH ×2 (08:02→19:47)
[2021-09-19] MEDS: vancomycin/NS 1 GM ADD-VANTAGE 250 ML IV SCH ×2 (08:02→19:46)
[2021-09-19] MEDS: gabapentin 300mg capsule PO SCH ×4 (08:14→23:26)
[2021-09-19] MEDS: HYDROcodone/acetaminophen 10/325mg tab PO PRN ×4 (08:15→22:28)
[2021-09-19] MEDS ORDERED: furosemide 40mg/4ml inj IV ONE (09:25)
[2021-09-19 12:25] LABS: HEMATOCRIT 26.5 % (42.0-52.0); HEMOGLOBIN 8.7 g/dl (14.0-17.9); MEAN CORPUSCULAR HEMOGLOBIN 26.7 PG (27.0-31.0); MEAN CORPUSCULAR HGB CONC 32.9 g/dL (33.0-36.5); MEAN PLATELET VOLUME 9.7 FL (7.4-10.4); PLATELET COUNT 141 X10'3 (140-440); RED BLOOD COUNT 3.28 X10'6 (4.70-6.10); RED CELL DISTRIBUTION WIDTH 19.8 % (11.5-14.5); WHITE BLOOD COUNT 13.9 X10'3 (4.5-11.0)
[2021-09-19 12:30] LABS: ALANINE AMINOTRANSFERASE 16 U/L (12-78); ALBUMIN 3.4 G/DL (3.4-5.0); ALBUMIN/GLOBULIN RATIO 1.4 (1.1-1.5); ALKALINE PHOSPHATASE 55 IU/L (46-116); ANION GAP 12 (8-16); ASPARTATE AMINO TRANSFERASE 25 U/L (10-37); BILIRUBIN,TOTAL 0.6 MG/DL (0.1-1.0); BLOOD UREA NITROGEN 20 MG/DL (7-18); BUN/CREATININE RATIO 15.9 (5.4-32.0); CALCIUM 8.5 MG/DL (8.5-10.1); CHLORIDE 107 MMOL/L (99-107); CREATININE 1.26 MG/DL (0.60-1.10); GLUCOSE 118 MG/DL (70-104); MAGNESIUM 2.6 MG/DL (1.5-2.4); PHOSPHORUS 4.1 MG/DL (2.3-4.5); SODIUM 137 MMOL/L (135-145); TOTAL CARBON DIOXIDE 18.3 MMOL/L (24-32); TOTAL PROTEIN 5.8 G/DL (6.4-8.2); eGFR 57 ML/MIN
[2021-09-19 12:34] LABS: POTASSIUM 6.4 MMOL/L (3.5-5.1)
[2021-09-19] MEDS ORDERED: insulin regular, human 10 units/0.1 ml syringe IV ONE (12:55)
[2021-09-19] MEDS ORDERED: dextrose 50%-water 50ml dispensing syringe IV ONE (12:55)
[2021-09-19] MEDS: atorvastatin 20mg tablet PO SCH (20:20)
[2021-09-19] MEDS: insulin glargine (Lantus) pen - multi-dose SQ SCH (21:00)
[2021-09-19] MEDS: Insulin Reg/NS 100units/100mL 100 ML IV SCH (21:10)
[2021-09-20] VITALS (22 sets, daily range): BP systolic 87–113; BP diastolic 55–79
[2021-09-20] MEDS: HYDROcodone/acetaminophen 10/325mg tab PO PRN ×4 (02:47→22:23)
[2021-09-20 02:52] LABS: BASOPHILS # (AUTO) 0.1 X10'3 (0-0.2); BASOPHILS % (AUTO) 0.5 % (0-1); EOSINOPHILS % (AUTO) 0.1 % (0-6); HEMATOCRIT 24.5 % (42.0-52.0); HEMOGLOBIN 8.1 g/dl (14.0-17.9); LYMPHOCYTES # (AUTO) 1.1 X10'3 (1.1-4.8); LYMPHOCYTES % (AUTO) 9.4 % (21-51); MEAN CORPUSCULAR HEMOGLOBIN 26.7 PG (27.0-31.0); MEAN CORPUSCULAR HGB CONC 32.8 g/dL (33.0-36.5); MEAN CORPUSCULAR VOLUME 81.2 FL (78-98); MEAN PLATELET VOLUME 9.8 FL (7.4-10.4); MONOCYTES # (AUTO) 0.9 X10'3 (0-0.9); MONOCYTES % (AUTO) 7.9 % (2-12); NEUTROPHILS # (AUTO) 9.4 X10'3 (1.8-7.7); NEUTROPHILS % (AUTO) 82.1 % (42-75); PLATELET COUNT 134 X10'3 (140-440); RED BLOOD COUNT 3.02 X10'6 (4.70-6.10); RED CELL DISTRIBUTION WIDTH 20.2 % (11.5-14.5); WHITE BLOOD COUNT 11.5 X10'3 (4.5-11.0)
[2021-09-20 03:14] LABS: ALANINE AMINOTRANSFERASE 34 U/L (12-78); ALBUMIN 3.3 G/DL (3.4-5.0); ALBUMIN/GLOBULIN RATIO 1.3 (1.1-1.5); ALKALINE PHOSPHATASE 61 IU/L (46-116); ANION GAP 10 (8-16); ASPARTATE AMINO TRANSFERASE 48 U/L (10-37); BILIRUBIN,TOTAL 0.4 MG/DL (0.1-1.0); BLOOD UREA NITROGEN 24 MG/DL (7-18); BUN/CREATININE RATIO 18.3 (5.4-32.0); CALCIUM 8.4 MG/DL (8.5-10.1); CHLORIDE 105 MMOL/L (99-107); CREATININE 1.31 MG/DL (0.60-1.10); GLUCOSE 105 MG/DL (70-104); MAGNESIUM 2.3 MG/DL (1.5-2.4); PHOSPHORUS 4.3 MG/DL (2.3-4.5); POTASSIUM 5.7 MMOL/L (3.5-5.1); SODIUM 136 MMOL/L (135-145); TOTAL CARBON DIOXIDE 21.3 MMOL/L (24-32); TOTAL PROTEIN 5.8 G/DL (6.4-8.2); eGFR 54 ML/MIN
[2021-09-20 03:40] LABS: ACANTHOCYTES 2+; ANISOCYTOSIS 3+; BURR CELLS 1+; ELLIPTOCYTES FEW; MICROCYTOSIS 1+; PLATELET ESTIMATE DECREASED; POLYCHROMASIA FEW
[2021-09-20 03:41] LABS: SCHISTOCYTES FEW
[2021-09-20] MEDS: K and/or MAG REPLACEMENT MC SCH ×2 (07:02→20:12)
[2021-09-20] MEDS: pantoprazole IV 40 MG in normal saline 100ml IV soln 100 ML IV SCH (08:03)
[2021-09-20] MEDS: gabapentin 300mg capsule PO SCH ×3 (08:03→23:39)
[2021-09-20] MEDS: aspirin 325mg tablet, delayed-release (Ecotrin) PO SCH (08:03)
[2021-09-20] MEDS: pantoprazole 40mg Tablet.DR PO SCH (08:03)
[2021-09-20] MEDS: mupirocin 2% nasal ointment 1gm UD NS SCH (08:04)
[2021-09-20] MEDS: sennosides/docusate sodium tablet PO SCH ×2 (08:04→20:06)
[2021-09-20] MEDS: multivitamins, therapeutics tablet PO SCH (08:04)
[2021-09-20] MEDS: docusate sod 100mg capsule PO SCH ×2 (08:04→20:06)
[2021-09-20] MEDS ORDERED: furosemide 40mg/4ml inj IV ONE (10:35)
[2021-09-20] MEDS: sodium chloride 0.45% 1,000 ML IV SCH (11:50)
[2021-09-20] MEDS: atorvastatin 20mg tablet PO SCH (20:06)
[2021-09-20] MEDS: insulin glargine (Lantus) pen - multi-dose SQ SCH (20:13)
[2021-09-21] VITALS (23 sets, daily range): BP systolic 91–122; BP diastolic 59–86
[2021-09-21 01:28] LABS: BASOPHILS % (AUTO) 0.2 % (0-1); EOSINOPHILS # (AUTO) 0.2 X10'3 (0-0.9); HEMATOCRIT 23.4 % (42.0-52.0); HEMOGLOBIN 7.8 g/dl (14.0-17.9); LYMPHOCYTES # (AUTO) 0.9 X10'3 (1.1-4.8); LYMPHOCYTES % (AUTO) 9.8 % (21-51); MEAN CORPUSCULAR HEMOGLOBIN 26.8 PG (27.0-31.0); MEAN CORPUSCULAR HGB CONC 33.2 g/dL (33.0-36.5); MEAN CORPUSCULAR VOLUME 80.6 FL (78-98); MEAN PLATELET VOLUME 9.5 FL (7.4-10.4); MONOCYTES # (AUTO) 0.7 X10'3 (0-0.9); MONOCYTES % (AUTO) 6.9 % (2-12); NEUTROPHILS # (AUTO) 7.7 X10'3 (1.8-7.7); NEUTROPHILS % (AUTO) 81.1 % (42-75); PLATELET COUNT 147 X10'3 (140-440); RED BLOOD COUNT 2.91 X10'6 (4.70-6.10); RED CELL DISTRIBUTION WIDTH 20.3 % (11.5-14.5); WHITE BLOOD COUNT 9.5 X10'3 (4.5-11.0)
[2021-09-21 01:36] LABS: ANION GAP 9 (8-16); BLOOD UREA NITROGEN 19 MG/DL (7-18); BUN/CREATININE RATIO 16.8 (5.4-32.0); CALCIUM 8.3 MG/DL (8.5-10.1); CHLORIDE 106 MMOL/L (99-107); CREATININE 1.13 MG/DL (0.60-1.10); GLUCOSE 99 MG/DL (70-104); MAGNESIUM 1.8 MG/DL (1.5-2.4); SODIUM 138 MMOL/L (135-145); TOTAL CARBON DIOXIDE 22.7 MMOL/L (24-32); eGFR 64 ML/MIN
[2021-09-21] MEDS: magnesium 4gm in 100ml NS 100 ML IV PRN (02:55)
[2021-09-21 03:23] LABS: ACANTHOCYTES 2+; ANISOCYTOSIS 3+; BURR CELLS 1+; PLATELET ESTIMATE NORMAL; SCHISTOCYTES FEW
[2021-09-21 03:24] LABS: ELLIPTOCYTES FEW; LARGE PLATELETS FEW; POIKILOCYTOSIS 1+; POLYCHROMASIA FEW
[2021-09-21] MEDS: HYDROcodone/acetaminophen 10/325mg tab PO PRN ×3 (04:44→20:02)
[2021-09-21] MEDS: Insulin Reg/NS 100units/100mL 100 ML IV SCH (06:30)
[2021-09-21] MEDS: sodium chloride 0.45% 1,000 ML IV SCH (07:12)
[2021-09-21] MEDS: docusate sod 100mg capsule PO SCH ×2 (07:13→20:01)
[2021-09-21] MEDS: gabapentin 300mg capsule PO SCH ×2 (07:13→15:57)
[2021-09-21] MEDS: aspirin 325mg tablet, delayed-release (Ecotrin) PO SCH (07:14)
[2021-09-21] MEDS: multivitamins, therapeutics tablet PO SCH (07:14)
[2021-09-21] MEDS: pantoprazole 40mg Tablet.DR PO SCH (07:14)
[2021-09-21] MEDS: sennosides/docusate sodium tablet PO SCH ×2 (07:14→20:01)
[2021-09-21] MEDS: K and/or MAG REPLACEMENT MC SCH ×2 (07:16→20:00)
[2021-09-21] MEDS ORDERED: DOBUTamine-DoBUTrex 500mg/D5W 250 ML IV PRN (10:10)
[2021-09-21] MEDS: JUVEN Smoothie Arginine/Glut./Ca2+Bmb (Juven 19.3pkt) 240ml cup PO SCH (17:30)
[2021-09-21] MEDS: atorvastatin 20mg tablet PO SCH (20:56)
[2021-09-21] MEDS: insulin glargine (Lantus) pen - multi-dose SQ SCH (21:00)
[2021-09-22] VITALS (20 sets, daily range): BP systolic 101–126; BP diastolic 68–90
[2021-09-22] MEDS: gabapentin 300mg capsule PO SCH ×4 (00:05→23:34)
[2021-09-22 06:32] LABS: ALBUMIN 2.9 G/DL (3.4-5.0); ANION GAP 12 (8-16); BLOOD UREA NITROGEN 15 MG/DL (7-18); BUN/CREATININE RATIO 17.4 (5.4-32.0); CALCIUM 8.6 MG/DL (8.5-10.1); CHLORIDE 103 MMOL/L (99-107); CREATININE 0.86 MG/DL (0.60-1.10); GLUCOSE 89 MG/DL (70-104); POTASSIUM 4.5 MMOL/L (3.5-5.1); SODIUM 134 MMOL/L (135-145); TOTAL CARBON DIOXIDE 19.1 MMOL/L (24-32); eGFR 88 ML/MIN
[2021-09-22 06:52] LABS: BASOPHILS % (AUTO) 0.4 % (0-1); EOSINOPHILS # (AUTO) 0.2 X10'3 (0-0.9); EOSINOPHILS % (AUTO) 2.3 % (0-6); HEMOGLOBIN 9.2 g/dl (14.0-17.9); LYMPHOCYTES # (AUTO) 0.7 X10'3 (1.1-4.8); LYMPHOCYTES % (AUTO) 7.9 % (21-51); MEAN CORPUSCULAR HEMOGLOBIN 26.8 PG (27.0-31.0); MEAN CORPUSCULAR HGB CONC 32.8 g/dL (33.0-36.5); MEAN CORPUSCULAR VOLUME 81.8 FL (78-98); MEAN PLATELET VOLUME 9.7 FL (7.4-10.4); MONOCYTES # (AUTO) 0.6 X10'3 (0-0.9); MONOCYTES % (AUTO) 7.1 % (2-12); NEUTROPHILS # (AUTO) 7.1 X10'3 (1.8-7.7); NEUTROPHILS % (AUTO) 82.3 % (42-75); PLATELET COUNT 168 X10'3 (140-440); RED BLOOD COUNT 3.42 X10'6 (4.70-6.10); RED CELL DISTRIBUTION WIDTH 20.4 % (11.5-14.5); WHITE BLOOD COUNT 8.6 X10'3 (4.5-11.0)
[2021-09-22] MEDS: JUVEN Smoothie Arginine/Glut./Ca2+Bmb (Juven 19.3pkt) 240ml cup PO SCH ×2 (07:30→18:05)
[2021-09-22] MEDS: docusate sod 100mg capsule PO SCH ×2 (07:37→20:16)
[2021-09-22] MEDS: pantoprazole 40mg Tablet.DR PO SCH (07:37)
[2021-09-22] MEDS: aspirin 325mg tablet, delayed-release (Ecotrin) PO SCH (07:37)
[2021-09-22] MEDS: multivitamins, therapeutics tablet PO SCH (07:37)
[2021-09-22] MEDS: sennosides/docusate sodium tablet PO SCH ×2 (07:37→20:16)
[2021-09-22] MEDS: K and/or MAG REPLACEMENT MC SCH ×2 (08:00→20:00)
[2021-09-22] MEDS ORDERED: furosemide 40mg/4ml inj IV ONE (08:05)
[2021-09-22 10:03] LABS: ACT @ 1.70 U 323 SEC (193-297); ACT @ 2.84 U 458 SEC (260-420); BASELINE ACT 157 SEC (101-148); PATIENT WEIGHT 59.0k KG
[2021-09-22] MEDS: sodium chloride 0.45% 1,000 ML IV SCH (11:50)
[2021-09-22] MEDS: HYDROcodone/acetaminophen 10/325mg tab PO PRN ×2 (14:37→23:42)
[2021-09-22] MEDS: Insulin Reg/NS 100units/100mL 100 ML IV SCH (15:50)
[2021-09-22] MEDS: atorvastatin 20mg tablet PO SCH (20:16)
[2021-09-22] MEDS: insulin glargine (Lantus) pen - multi-dose SQ SCH (21:00)
[2021-09-23 02:00] VITALS: BP 93/60
[2021-09-23] MEDS: HYDROcodone/acetaminophen 10/325mg tab PO PRN ×3 (05:45→21:42)
[2021-09-23 06:00] VITALS: BP 101/70
[2021-09-23 06:10] LABS: POTASSIUM 3.7 MMOL/L (3.5-5.1)
[2021-09-23 07:20] LABS: BASOPHILS % (AUTO) 0.4 % (0-1); EOSINOPHILS # (AUTO) 0.7 X10'3 (0-0.9); EOSINOPHILS % (AUTO) 7.6 % (0-6); HEMATOCRIT 25.3 % (42.0-52.0); HEMOGLOBIN 8.4 g/dl (14.0-17.9); LYMPHOCYTES # (AUTO) 1.2 X10'3 (1.1-4.8); LYMPHOCYTES % (AUTO) 14.4 % (21-51); MEAN CORPUSCULAR HEMOGLOBIN 26.8 PG (27.0-31.0); MEAN CORPUSCULAR HGB CONC 33.2 g/dL (33.0-36.5); MEAN CORPUSCULAR VOLUME 80.8 FL (78-98); MEAN PLATELET VOLUME 9.4 FL (7.4-10.4); MONOCYTES # (AUTO) 0.9 X10'3 (0-0.9); MONOCYTES % (AUTO) 10.9 % (2-12); NEUTROPHILS # (AUTO) 5.7 X10'3 (1.8-7.7); NEUTROPHILS % (AUTO) 66.7 % (42-75); PLATELET COUNT 235 X10'3 (140-440); RED BLOOD COUNT 3.14 X10'6 (4.70-6.10); RED CELL DISTRIBUTION WIDTH 20.7 % (11.5-14.5); WHITE BLOOD COUNT 8.6 X10'3 (4.5-11.0)
[2021-09-23] MEDS: sennosides/docusate sodium tablet PO SCH ×2 (07:30→19:45)
[2021-09-23] MEDS: aspirin 325mg tablet, delayed-release (Ecotrin) PO SCH (07:30)
[2021-09-23] MEDS: docusate sod 100mg capsule PO SCH ×2 (07:30→19:45)
[2021-09-23] MEDS: gabapentin 300mg capsule PO SCH ×3 (07:30→23:23)
[2021-09-23] MEDS: multivitamins, therapeutics tablet PO SCH (07:30)
[2021-09-23] MEDS: pantoprazole 40mg Tablet.DR PO SCH (07:30)
[2021-09-23] MEDS: K and/or MAG REPLACEMENT MC SCH ×2 (08:00→20:00)
[2021-09-23 08:16] LABS: ALBUMIN 2.5 G/DL (3.4-5.0); ANION GAP 12 (8-16); BLOOD UREA NITROGEN 18 MG/DL (7-18); BUN/CREATININE RATIO 17.8 (5.4-32.0); CALCIUM 8.3 MG/DL (8.5-10.1); CHLORIDE 106 MMOL/L (99-107); CREATININE 1.01 MG/DL (0.60-1.10); GLUCOSE 90 MG/DL (70-104); SODIUM 137 MMOL/L (135-145); TOTAL CARBON DIOXIDE 19.5 MMOL/L (24-32); eGFR 73 ML/MIN
[2021-09-23] MEDS: JUVEN Smoothie Arginine/Glut./Ca2+Bmb (Juven 19.3pkt) 240ml cup PO SCH ×2 (08:21→17:30)
[2021-09-23 11:00] VITALS: BP 93/63
[2021-09-23 15:00] VITALS: BP 97/65
[2021-09-23 18:00] VITALS: BP 98/70
[2021-09-23] MEDS: albumin (human) 25% 100ml IV 100 ML IV SCH (19:45)
[2021-09-23] MEDS: atorvastatin 20mg tablet PO SCH (19:46)
[2021-09-23] MEDS: insulin glargine (Lantus) pen - multi-dose SQ SCH (21:00)
[2021-09-23 22:00] VITALS: BP 102/71
[2021-09-24] MEDS: Insulin Reg/NS 100units/100mL 100 ML IV SCH (01:10)
[2021-09-24 02:00] VITALS: BP 98/72
[2021-09-24] MEDS: HYDROcodone/acetaminophen 10/325mg tab PO PRN ×3 (02:56→14:48)
[2021-09-24 07:00] VITALS: BP 94/66
[2021-09-24] MEDS: JUVEN Smoothie Arginine/Glut./Ca2+Bmb (Juven 19.3pkt) 240ml cup PO SCH (07:30)
[2021-09-24] MEDS: K and/or MAG REPLACEMENT MC SCH (08:00)
[2021-09-24] MEDS: albumin (human) 25% 100ml IV 100 ML IV SCH (08:00)
[2021-09-24] MEDS: gabapentin 300mg capsule PO SCH (09:23)
[2021-09-24] MEDS: aspirin 325mg tablet, delayed-release (Ecotrin) PO SCH (09:23)
[2021-09-24] MEDS: docusate sod 100mg capsule PO SCH (09:24)
[2021-09-24] MEDS: sennosides/docusate sodium tablet PO SCH (09:24)
[2021-09-24] MEDS: multivitamins, therapeutics tablet PO SCH (09:24)
[2021-09-24] MEDS: pantoprazole 40mg Tablet.DR PO SCH (09:28)
[2021-09-24] MEDS ORDERED: HYDR-3972 PO ×2 (09:28)
[2021-09-24 11:00] VITALS: BP 98/64
[2021-09-24] MEDS: sodium chloride 0.45% 1,000 ML IV SCH (11:50)
== END 2021-09-24 13:00 | disposition home health service (06) | DRG 235 ==
LOC: ER 12:15 → ED HOLD 18:27 → MED 3N 23:15 → ICU 2S 09-17 16:00 → PCU 3S 09-22 16:34
PROVIDERS: ADMIT Family Medicine; ATTEND Family Medicine
PROC: B32T1ZZ Computerized Tomography (CT Scan) of Left Pulmonary Artery using Low Osmolar Contrast (ICD-10-PCS; 2021-09-15)
PROC: B3201ZZ Computerized Tomography (CT Scan) of Thoracic Aorta using Low Osmolar Contrast (ICD-10-PCS; 2021-09-15)
PROC: B32S1ZZ Computerized Tomography (CT Scan) of Right Pulmonary Artery using Low Osmolar Contrast (ICD-10-PCS; 2021-09-15)
PROC: 021209W Bypass Coronary Artery, Three Arteries from Aorta with Autologous Venous Tissue, Open Approach (ICD-10-PCS; 2021-09-18)
PROC: 06BP4ZZ Excision of Right Saphenous Vein, Percutaneous Endoscopic Approach (ICD-10-PCS; 2021-09-18)
PROC: 02L70CK Occlusion of Left Atrial Appendage with Extraluminal Device, Open Approach (ICD-10-PCS; 2021-09-18)
PROC: B24BZZ4 Ultrasonography of Heart with Aorta, Transesophageal (ICD-10-PCS; 2021-09-18)
PROC: 02100Z9 Bypass Coronary Artery, One Artery from Left Internal Mammary, Open Approach (ICD-10-PCS; principal; 2021-09-18 08:34)
PROC: 30233N1 Transfusion of Nonautologous Red Blood Cells into Peripheral Vein, Percutaneous Approach (ICD-10-PCS; 2021-09-19)
PROC: 5A0935A Assistance with Respiratory Ventilation, Less than 24 Consecutive Hours, High Flow/Velocity Cannula (ICD-10-PCS; 2021-09-21)
PROC: 5A0935A Assistance with Respiratory Ventilation, Less than 24 Consecutive Hours, High Flow/Velocity Cannula (ICD-10-PCS; 2021-09-22)
DX: I25.10 Atherosclerotic heart disease of native coronary artery without angina pectoris (principal); I21.A1 Myocardial infarction type 2; I48.20 Chronic atrial fibrillation, unspecified; I31.3 Pericardial effusion (noninflammatory); E78.5 Hyperlipidemia, unspecified; G62.9 Polyneuropathy, unspecified; Z20.822 Contact with and (suspected) exposure to COVID-19; G89.4 Chronic pain syndrome; I35.0 Nonrheumatic aortic (valve) stenosis; K21.9 Gastro-esophageal reflux disease without esophagitis; I11.0 Hypertensive heart disease with heart failure; I25.5 Ischemic cardiomyopathy; J44.9 Chronic obstructive pulmonary disease, unspecified; F12.90 Cannabis use, unspecified, uncomplicated; E87.5 Hyperkalemia; G47.9 Sleep disorder, unspecified; I50.9 Heart failure, unspecified; I70.0 Atherosclerosis of aorta; I95.9 Hypotension, unspecified; Z79.01 Long term (current) use of anticoagulants; Z79.82 Long term (current) use of aspirin; Z79.899 Other long term (current) drug therapy; Z80.9 Family history of malignant neoplasm, unspecified; Z82.49 Family history of ischemic heart disease and other diseases of the circulatory system; Z87.891 Personal history of nicotine dependence; Z95.0 Presence of cardiac pacemaker; Z95.2 Presence of prosthetic heart valve; Z88.0 Allergy status to penicillin
CPT/HCPCS: 36415; 36430; 36600; 71045; 71046; 71250; 71275; 80048; 80053; 80061; 82330; 82435; 82803; 82947; 82948; 83036; 83735; 83880; 84100; 84132; 84145; 84295; 84484; 85008; 85018; 85025; 85027; 85347; 85379; 85384; 85610; 85730; 86885; 86900; 86901; 86920; 87081; 87635; 93005; 93308; 93312; 93325; 93971; 94002; 94003; 94010; 94760; 96365; 96375; 97110; 97116; 97161; 97164; 97530; 99285; A4618; A6258; A6446; A6449; A7000; A7048; C1713; C1751; C9113; C9803; G0378; J0171; J0690; J1250; J1644; J1815; J1940; J2060; J2250; J2270; J2704; J2720; J3370; J3475; J3480; J3490; J7030; J7040; J7050; J7060; J7120; P9016; P9045; P9047; Q9967

== ENCOUNTER 2021-09-28 06:22 | Inpatient (IN) | payer OTHER, MEDICARE ==
[~2021-09-28] VITALS: Ht 182.9 cm; Wt 61.4 kg
[~2021-09-28 06:22] MED LIST changes: -ASPI-1 PO; +ASPI-920 PO; +ATOR-2 PO; +BISA10SU60 RC; -CARV25TA PO; -ERGO500014 PO; -FOLI1TAB2 PO; +GABA300C PO; +HYDR-3972 PO; -LISI2.5T14 PO; +MAGN400O6 PO; +METO-539 PO; +MULT-1085 PO; -NICO-687 TD; -NITR0.4T51 SL; +PANT20TA18 PO; -heparin 10,000 units/1 ML INJ ONE; -sodium bicarbonate (8.4%) 1 mEq/ml syringe ONE
[2021-09-28 06:55] LABS: HEMATOCRIT 28.9 % (42.0-52.0); WHITE BLOOD COUNT 14.2 X10'3 (4.5-11.0)
[2021-09-28 06:56] LABS: BASOPHILS # (AUTO) 0.2 X10'3 (0-0.2); BASOPHILS % (AUTO) 1.5 % (0-1); EOSINOPHILS # (AUTO) 0.5 X10'3 (0-0.9); EOSINOPHILS % (AUTO) 3.9 % (0-6); HEMOGLOBIN 9.4 g/dl (14.0-17.9); LYMPHOCYTES # (AUTO) 1.7 X10'3 (1.1-4.8); LYMPHOCYTES % (AUTO) 12.2 % (21-51); MEAN CORPUSCULAR HEMOGLOBIN 26.4 PG (27.0-31.0); MEAN CORPUSCULAR HGB CONC 32.5 g/dL (33.0-36.5); MEAN CORPUSCULAR VOLUME 81.3 FL (78-98); MEAN PLATELET VOLUME 8.1 FL (7.4-10.4); MONOCYTES # (AUTO) 0.7 X10'3 (0-0.9); MONOCYTES % (AUTO) 4.9 % (2-12); NEUTROPHILS % (AUTO) 77.5 % (42-75); PLATELET COUNT 546 X10'3 (140-440); RED BLOOD COUNT 3.55 X10'6 (4.70-6.10)
[2021-09-28 06:57] LABS: ALANINE AMINOTRANSFERASE 42 U/L (12-78); ALBUMIN 2.8 G/DL (3.4-5.0); ALBUMIN/GLOBULIN RATIO 0.8 (1.1-1.5); ALKALINE PHOSPHATASE 108 IU/L (46-116); ANION GAP 16 (8-16); ASPARTATE AMINO TRANSFERASE 39 U/L (10-37); BILIRUBIN,TOTAL 0.5 MG/DL (0.1-1.0); BLOOD UREA NITROGEN 14 MG/DL (7-18); BUN/CREATININE RATIO 15.1 (5.4-32.0); CALCIUM 8.5 MG/DL (8.5-10.1); CHLORIDE 107 MMOL/L (99-107); CREATININE 0.93 MG/DL (0.60-1.10); GLUCOSE 108 MG/DL (70-104); POTASSIUM 3.9 MMOL/L (3.5-5.1); SODIUM 143 MMOL/L (135-145); TOTAL CARBON DIOXIDE 20.3 MMOL/L (24-32); TOTAL PROTEIN 6.5 G/DL (6.4-8.2); eGFR 81 ML/MIN
[2021-09-28] MEDS ORDERED: furosemide 10 MG/1 ML 10ml inj IV ONE (07:20)
--- NOTE | 2021-09-28 07:56 | NUR ---
Patient given 6 oz water to drink.
[2021-09-28] MEDS ORDERED: morphine 4 MG/ML inj SYRINge IV ONE (08:25)
[2021-09-28] MEDS ORDERED: morphine 2 MG/ML inj. syringe IV ONE (08:30)
[2021-09-28] MEDS ORDERED: magnesium 4gm in 100ml NS 100 ML IV PRN (08:45)
[2021-09-28] MEDS ORDERED: acetaminophen 325mg tablet PO PRN (08:45)
[2021-09-28] MEDS ORDERED: potassium CL 10mEq/100ml bag 100 ML IV PRN (08:45)
[2021-09-28] MEDS ORDERED: magnesium 2GM in 50ml NS 50 ML IV PRN (08:45)
[2021-09-28] MEDS ORDERED: potassium Cl 20 mEq SR tablet PO PRN (08:45)
[2021-09-28] MEDS ORDERED: magnesium Cl slow-release 64mg tablet PO PRN (08:45)
[2021-09-28] MEDS ORDERED: ondansetron/PF 4mg/2ml inj IV PRN (08:45)
[2021-09-28 09:15] LABS: ANISOCYTOSIS 3+; HYPOCHROMASIA 1+; PLATELET ESTIMATE INCREASED; POLYCHROMASIA 1+
[2021-09-28 09:16] LABS: ACANTHOCYTES 2+; BURR CELLS 1+; SCHISTOCYTES FEW; TARGET CELLS 1+
[2021-09-28 09:55] LABS: MAGNESIUM 1.6 MG/DL (1.5-2.4)
[2021-09-28 09:57] LABS: MAGNESIUM 1.6 MG/DL (1.5-2.4); POTASSIUM 3.9 MMOL/L (3.5-5.1)
[2021-09-28] MEDS ORDERED: THIA100T70 PO (11:25)
[2021-09-28] MEDS ORDERED: LOSA25TA41 PO (11:25)
[2021-09-28] MEDS ORDERED: OMEP20CA15 PO (11:25)
[2021-09-28] MEDS ORDERED: APIX5TAB3 PO (11:25)
[2021-09-28] MEDS ORDERED: FOLI0.4T14 PO (11:25)
--- NOTE | 2021-09-28 12:04 | NUR ---
Patient requests pain medicine for back pain; hospitalist paged.
[2021-09-28] MEDS: HYDROcodone/acetaminophen 5mg/325mg tablet PO PRN ×2 (12:20→22:40)
[2021-09-28] MEDS: K and/or MAG REPLACEMENT MC SCH (20:00)
[2021-09-28] MEDS ORDERED: SPIR25TA5 PO (22:35)
[2021-09-28] MEDS ORDERED: AMIO200T61 PO (22:36)
--- NOTE | 2021-09-28 22:41 | NUR ---
MD notified that patient home medications have not been continued by the admitting MD. Also that patient does not have scheduled lasix for CHF exacerbation.
[2021-09-28] MEDS: furosemide 40mg/4ml inj IV SCH (22:45)
[2021-09-29] MEDS ORDERED: pantoprazole 40mg Tablet.DR PO ONE (00:20)
[2021-09-29] MEDS ORDERED: gabapentin 300mg capsule PO ONE (00:20)
--- NOTE | 2021-09-29 01:42 | NUR ---
Patient fitted with condom catheter for patient comfort r/t lasix administration.
[2021-09-29 07:41] LABS: BASOPHILS # (AUTO) 0.1 X10'3 (0-0.2); EOSINOPHILS # (AUTO) 0.4 X10'3 (0-0.9); HEMOGLOBIN 10.3 g/dl (14.0-17.9); LYMPHOCYTES # (AUTO) 1.4 X10'3 (1.1-4.8); MONOCYTES # (AUTO) 0.7 X10'3 (0-0.9); MONOCYTES % (AUTO) 6.7 % (2-12); NEUTROPHILS # (AUTO) 8.3 X10'3 (1.8-7.7); WHITE BLOOD COUNT 10.9 X10'3 (4.5-11.0)
[2021-09-29 07:43] LABS: ALBUMIN 2.7 G/DL (3.4-5.0); ANION GAP 14 (8-16); BASOPHILS % (AUTO) 0.5 % (0-1); BLOOD UREA NITROGEN 14 MG/DL (7-18); BUN/CREATININE RATIO 14.4 (5.4-32.0); CALCIUM 8.8 MG/DL (8.5-10.1); CHLORIDE 106 MMOL/L (99-107); CREATININE 0.97 MG/DL (0.60-1.10); EOSINOPHILS % (AUTO) 3.6 % (0-6); GLUCOSE 96 MG/DL (70-104); HEMATOCRIT 31.4 % (42.0-52.0); LYMPHOCYTES % (AUTO) 12.9 % (21-51); MAGNESIUM 1.5 MG/DL (1.5-2.4); MEAN CORPUSCULAR HEMOGLOBIN 26.2 PG (27.0-31.0); MEAN CORPUSCULAR HGB CONC 32.9 g/dL (33.0-36.5); MEAN CORPUSCULAR VOLUME 79.8 FL (78-98); MEAN PLATELET VOLUME 8.1 FL (7.4-10.4); NEUTROPHILS % (AUTO) 76.3 % (42-75); PLATELET COUNT 604 X10'3 (140-440); POTASSIUM 3.4 MMOL/L (3.5-5.1); RED BLOOD COUNT 3.94 X10'6 (4.70-6.10); RED CELL DISTRIBUTION WIDTH 21.3 % (11.5-14.5); SODIUM 142 MMOL/L (135-145); TOTAL CARBON DIOXIDE 22.1 MMOL/L (24-32); eGFR 77 ML/MIN
[2021-09-29] MEDS ORDERED: folic acid 0.4mg tablet PO SCH (08:00)
[2021-09-29 08:58] LABS: ANISOCYTOSIS 3+; PLATELET ESTIMATE INCREASED
[2021-09-29 08:59] LABS: ACANTHOCYTES 2+; BURR CELLS 1+; POLYCHROMASIA 1+; SCHISTOCYTES FEW
[2021-09-29 09:00] LABS: HYPOCHROMASIA 1+
[2021-09-29 09:04] LABS: ELLIPTOCYTES FEW; LARGE PLATELETS FEW
[2021-09-29] MEDS: amiodarone 200mg tablet PO SCH ×2 (09:07)
[2021-09-29] MEDS: thiamine 100mg tablet PO SCH (09:08)
[2021-09-29] MEDS: furosemide 40mg/4ml inj IV SCH ×2 (09:08→20:00)
[2021-09-29] MEDS: pantoprazole 40mg Tablet.DR PO SCH (09:08)
[2021-09-29] MEDS: HYDROcodone/acetaminophen 5mg/325mg tablet PO PRN ×2 (09:08→20:25)
[2021-09-29] MEDS: folic acid 1mg tablet PO SCH (09:08)
[2021-09-29] MEDS: aspirin 81mg, enteric-coated 1 TAB TABLET.DR PO SCH (09:08)
[2021-09-29] MEDS: apixaban 5mg tablet PO SCH ×2 (09:08→20:19)
[2021-09-29] MEDS: K and/or MAG REPLACEMENT MC SCH ×2 (09:09→20:25)
[2021-09-29] MEDS: potassium Cl 20 mEq SR tablet PO PRN ×2 (09:09→20:24)
[2021-09-29] MEDS: levoFLOXACIN-Levaquin 500mg/D5 100 ML IV SCH (09:23)
[2021-09-29] MEDS: spironolactone 25 MG tablet PO SCH (09:59)
[2021-09-29] MEDS: losartan 25mg tablet PO SCH (10:00)
[2021-09-29] MEDS: metoprolol succinate 25mg (24-HOUR) SR. Tablet PO SCH (10:01)
[2021-09-29] MEDS ORDERED: ondansetron 4mg rapidly disintigrating tab PO PRN (14:30)
[2021-09-29 16:50] VITALS: BP 109/74
--- NOTE | 2021-09-29 17:18 | NUR ---
Patient oriented to room and call light. Vitals stable in no acute distress.
[2021-09-29 18:00] VITALS: BP 114/78
--- NOTE | 2021-09-29 18:18 | NUR ---
Problems reprioritized. Patient report given, questions answered & plan of care reviewed with Devyi RN. Patient resting in bed in no acute distress.
[2021-09-29] MEDS: atorvastatin 20mg tablet PO SCH (20:19)
[2021-09-29] MEDS: lactobacillus rhamnosus 10,000 MMU CELLS/CAPSULE PO SCH (20:19)
[2021-09-29] MEDS: gabapentin 300mg capsule PO SCH (20:19)
[2021-09-29 22:00] VITALS: BP 105/70
[2021-09-30] VITALS (7 sets, daily range): BP systolic 87–110; BP diastolic 62–75
[2021-09-30] MEDS: HYDROcodone/acetaminophen 5mg/325mg tablet PO PRN ×3 (03:58→17:40)
[2021-09-30 06:52] LABS: EOSINOPHILS # (AUTO) 0.3 X10'3 (0-0.9); HEMOGLOBIN 9.7 g/dl (14.0-17.9); LYMPHOCYTES # (AUTO) 1.4 X10'3 (1.1-4.8); MONOCYTES # (AUTO) 0.8 X10'3 (0-0.9)
[2021-09-30 06:54] LABS: BASOPHILS % (AUTO) 0.3 % (0-1); EOSINOPHILS % (AUTO) 2.4 % (0-6); HEMATOCRIT 29.3 % (42.0-52.0); LYMPHOCYTES % (AUTO) 10.8 % (21-51); MEAN CORPUSCULAR HEMOGLOBIN 26.4 PG (27.0-31.0); MEAN CORPUSCULAR VOLUME 79.8 FL (78-98); MONOCYTES % (AUTO) 6.3 % (2-12); NEUTROPHILS % (AUTO) 80.2 % (42-75); PLATELET COUNT 598 X10'3 (140-440); RED BLOOD COUNT 3.68 X10'6 (4.70-6.10); RED CELL DISTRIBUTION WIDTH 21.1 % (11.5-14.5); WHITE BLOOD COUNT 12.4 X10'3 (4.5-11.0)
--- NOTE | 2021-09-30 06:55 | NUR ---
Patient in room PCU 3023. I have received report from Dannie NAQVI and had the opportunity to ask questions and assume patient care. Patient resting in bed in no acute distress.
[2021-09-30 07:22] LABS: ALBUMIN 2.5 G/DL (3.4-5.0); ANION GAP 12 (8-16); BLOOD UREA NITROGEN 15 MG/DL (7-18); BUN/CREATININE RATIO 14.7 (5.4-32.0); CALCIUM 8.5 MG/DL (8.5-10.1); CHLORIDE 106 MMOL/L (99-107); CREATININE 1.02 MG/DL (0.60-1.10); GLUCOSE 91 MG/DL (70-104); MAGNESIUM 1.4 MG/DL (1.5-2.4); POTASSIUM 3.7 MMOL/L (3.5-5.1); SODIUM 140 MMOL/L (135-145); eGFR 72 ML/MIN
[2021-09-30] MEDS: aspirin 81mg, enteric-coated 1 TAB TABLET.DR PO SCH (07:41)
[2021-09-30] MEDS: apixaban 5mg tablet PO SCH (07:41)
[2021-09-30] MEDS: lactobacillus rhamnosus 10,000 MMU CELLS/CAPSULE PO SCH ×2 (07:42→19:15)
[2021-09-30] MEDS: amiodarone 200mg tablet PO SCH ×3 (07:42→15:35)
[2021-09-30] MEDS: metoprolol succinate 25mg (24-HOUR) SR. Tablet PO SCH (07:42)
[2021-09-30] MEDS: folic acid 1mg tablet PO SCH (07:42)
[2021-09-30] MEDS: thiamine 100mg tablet PO SCH (07:42)
[2021-09-30] MEDS: pantoprazole 40mg Tablet.DR PO SCH (07:42)
[2021-09-30] MEDS: levoFLOXACIN-Levaquin 500mg/D5 100 ML IV SCH (07:43)
[2021-09-30] MEDS: furosemide 40mg/4ml inj IV SCH ×2 (07:43→19:16)
[2021-09-30] MEDS: losartan 25mg tablet PO SCH (07:43)
[2021-09-30] MEDS: spironolactone 25 MG tablet PO SCH (08:00)
[2021-09-30] MEDS: K and/or MAG REPLACEMENT MC SCH ×2 (08:00→19:16)
--- NOTE | 2021-09-30 18:23 | NUR ---
Problems reprioritized. Patient report given, questions answered & plan of care reviewed with Joy NAQVI. Patient resting in bed in no acute distress.
[2021-09-30] MEDS: atorvastatin 20mg tablet PO SCH (20:34)
[2021-09-30] MEDS: gabapentin 300mg capsule PO SCH (20:34)
[2021-09-30] MEDS: nystatin 15 GM powder TP SCH (20:35)
[2021-10-01] MEDS: amiodarone 200mg tablet PO SCH ×2 (00:25→19:53)
[2021-10-01] MEDS: HYDROcodone/acetaminophen 5mg/325mg tablet PO PRN ×4 (00:25→22:21)
[2021-10-01 02:00] VITALS: BP 93/64
[2021-10-01 06:00] VITALS: BP 94/64
--- NOTE | 2021-10-01 06:53 | NUR ---
Problems reprioritized. Patient report given, questions answered & plan of care reviewed with Hiral NAQVI .
--- NOTE | 2021-10-01 06:58 | NUR ---
Patient in room PCU 3021. I have received report from Joy NAQVI and had the opportunity to ask questions and assume patient care. Patient is resting in bed comfortably during shift change. Discussed plan of care. All needs met at this time.
[2021-10-01 07:00] LABS: EOSINOPHILS # (AUTO) 0.5 X10'3 (0-0.9); HEMOGLOBIN 9.8 g/dl (14.0-17.9); MEAN CORPUSCULAR VOLUME 79.4 FL (78-98); NEUTROPHILS # (AUTO) 8.9 X10'3 (1.8-7.7)
[2021-10-01 07:04] LABS: BASOPHILS % (AUTO) 0.3 % (0-1); HEMATOCRIT 29.3 % (42.0-52.0); LYMPHOCYTES # (AUTO) 1.3 X10'3 (1.1-4.8); LYMPHOCYTES % (AUTO) 11.7 % (21-51); MEAN CORPUSCULAR HEMOGLOBIN 26.5 PG (27.0-31.0); MEAN CORPUSCULAR HGB CONC 33.5 g/dL (33.0-36.5); MEAN PLATELET VOLUME 7.9 FL (7.4-10.4); MONOCYTES # (AUTO) 0.7 X10'3 (0-0.9); MONOCYTES % (AUTO) 5.9 % (2-12); NEUTROPHILS % (AUTO) 78.1 % (42-75); PLATELET COUNT 615 X10'3 (140-440); RED CELL DISTRIBUTION WIDTH 20.7 % (11.5-14.5); WHITE BLOOD COUNT 11.4 X10'3 (4.5-11.0)
[2021-10-01 07:20] LABS: ALBUMIN 2.5 G/DL (3.4-5.0); ANION GAP 12 (8-16); BLOOD UREA NITROGEN 16 MG/DL (7-18); BUN/CREATININE RATIO 15.2 (5.4-32.0); CALCIUM 8.3 MG/DL (8.5-10.1); CHLORIDE 105 MMOL/L (99-107); CREATININE 1.05 MG/DL (0.60-1.10); GLUCOSE 90 MG/DL (70-104); MAGNESIUM 1.4 MG/DL (1.5-2.4); POTASSIUM 3.2 MMOL/L (3.5-5.1); SODIUM 138 MMOL/L (135-145); TOTAL CARBON DIOXIDE 21.4 MMOL/L (24-32); eGFR 70 ML/MIN
[2021-10-01] MEDS: spironolactone 25 MG tablet PO SCH (08:00)
[2021-10-01] MEDS: losartan 25mg tablet PO SCH (08:00)
[2021-10-01] MEDS: metoprolol succinate 25mg (24-HOUR) SR. Tablet PO SCH (08:00)
[2021-10-01] MEDS: K and/or MAG REPLACEMENT MC SCH ×2 (08:00→20:00)
[2021-10-01 08:47] LABS: ACANTHOCYTES 1+; ANISOCYTOSIS 3+; BURR CELLS 2+; ELLIPTOCYTES 1+; MICROCYTOSIS 1+; PLATELET ESTIMATE INCREASED
[2021-10-01 08:48] LABS: HYPOCHROMASIA 1+; POLYCHROMASIA 1+; SCHISTOCYTES 1+
[2021-10-01] MEDS: levoFLOXACIN-Levaquin 500mg/D5 100 ML IV SCH (08:58)
[2021-10-01] MEDS: thiamine 100mg tablet PO SCH (08:58)
[2021-10-01] MEDS: nystatin 15 GM powder TP SCH ×3 (08:58→20:43)
[2021-10-01] MEDS: lactobacillus rhamnosus 10,000 MMU CELLS/CAPSULE PO SCH ×2 (08:59→19:53)
[2021-10-01] MEDS: aspirin 81mg, enteric-coated 1 TAB TABLET.DR PO SCH (09:00)
[2021-10-01] MEDS: pantoprazole 40mg Tablet.DR PO SCH (09:00)
[2021-10-01] MEDS: folic acid 1mg tablet PO SCH (09:00)
[2021-10-01] MEDS ORDERED: magnesium 4gm in 100ml NS 100 ML IV PRN (09:35)
[2021-10-01] MEDS ORDERED: potassium Cl 20 mEq SR tablet PO PRN (09:35)
[2021-10-01] MEDS ORDERED: magnesium 2GM in 50ml NS 50 ML IV PRN (09:35)
[2021-10-01] MEDS ORDERED: potassium CL 10mEq/100ml bag 100 ML IV PRN (09:35)
[2021-10-01 11:00] VITALS: BP 94/59
[2021-10-01 15:00] VITALS: BP 90/62
[2021-10-01] MEDS: potassium Cl 20 mEq SR tablet PO PRN ×2 (16:03→19:53)
[2021-10-01] MEDS: magnesium Cl slow-release 64mg tablet PO PRN ×2 (16:03→19:52)
[2021-10-01 18:00] VITALS: BP 99/69
--- NOTE | 2021-10-01 18:39 | NUR ---
Problems reprioritized. Patient report given, questions answered & plan of care reviewed with Joy NAQVI.
[2021-10-01] MEDS: apixaban 5mg tablet PO SCH (19:53)
[2021-10-01] MEDS: atorvastatin 20mg tablet PO SCH (20:43)
[2021-10-01] MEDS: gabapentin 300mg capsule PO SCH (20:43)
[2021-10-01 22:00] VITALS: BP 146/70
[2021-10-02] MEDS: potassium Cl 20 mEq SR tablet PO PRN (00:39)
[2021-10-02 02:00] VITALS: BP 102/63
[2021-10-02] MEDS: HYDROcodone/acetaminophen 5mg/325mg tablet PO PRN ×3 (05:42→19:01)
[2021-10-02 06:00] VITALS: BP 102/73
--- NOTE | 2021-10-02 06:28 | NUR ---
Problems reprioritized. Patient report given, questions answered & plan of care reviewed with Ping NAQVI .
[2021-10-02 06:45] LABS: BASOPHILS # (AUTO) 0.1 X10'3 (0-0.2); EOSINOPHILS # (AUTO) 0.5 X10'3 (0-0.9); MEAN CORPUSCULAR HEMOGLOBIN 26.5 PG (27.0-31.0); MEAN CORPUSCULAR HGB CONC 33.2 g/dL (33.0-36.5)
[2021-10-02 06:47] LABS: BASOPHILS % (AUTO) 0.5 % (0-1); EOSINOPHILS % (AUTO) 4.4 % (0-6); HEMATOCRIT 28.8 % (42.0-52.0); HEMOGLOBIN 9.6 g/dl (14.0-17.9); LYMPHOCYTES # (AUTO) 1.4 X10'3 (1.1-4.8); MEAN CORPUSCULAR VOLUME 79.9 FL (78-98); MONOCYTES # (AUTO) 0.7 X10'3 (0-0.9); MONOCYTES % (AUTO) 6.6 % (2-12); NEUTROPHILS # (AUTO) 8.2 X10'3 (1.8-7.7); NEUTROPHILS % (AUTO) 75.5 % (42-75); PLATELET COUNT 657 X10'3 (140-440); RED CELL DISTRIBUTION WIDTH 20.9 % (11.5-14.5); WHITE BLOOD COUNT 10.9 X10'3 (4.5-11.0)
[2021-10-02 07:00] LABS: ALBUMIN 2.7 G/DL (3.4-5.0); ANION GAP 10 (8-16); BLOOD UREA NITROGEN 18 MG/DL (7-18); BUN/CREATININE RATIO 17.8 (5.4-32.0); CALCIUM 8.8 MG/DL (8.5-10.1); CHLORIDE 105 MMOL/L (99-107); CREATININE 1.01 MG/DL (0.60-1.10); GLUCOSE 89 MG/DL (70-104); MAGNESIUM 1.5 MG/DL (1.5-2.4); POTASSIUM 4.3 MMOL/L (3.5-5.1); SODIUM 137 MMOL/L (135-145); TOTAL CARBON DIOXIDE 22.3 MMOL/L (24-32); eGFR 73 ML/MIN
[2021-10-02] MEDS: spironolactone 25 MG tablet PO SCH (08:00)
[2021-10-02] MEDS: losartan 25mg tablet PO SCH (08:00)
[2021-10-02] MEDS ORDERED: furosemide 40mg/4ml inj IV SCH (08:00)
[2021-10-02] MEDS: K and/or MAG REPLACEMENT MC SCH ×2 (08:00→20:00)
[2021-10-02] MEDS: metoprolol succinate 25mg (24-HOUR) SR. Tablet PO SCH (08:00)
[2021-10-02] MEDS: levoFLOXACIN-Levaquin 500mg/D5 100 ML IV SCH (08:33)
[2021-10-02] MEDS: amiodarone 200mg tablet PO SCH ×2 (08:36→19:00)
[2021-10-02] MEDS: aspirin 81mg, enteric-coated 1 TAB TABLET.DR PO SCH (08:37)
[2021-10-02] MEDS: pantoprazole 40mg Tablet.DR PO SCH (08:37)
[2021-10-02] MEDS: apixaban 5mg tablet PO SCH (08:37)
[2021-10-02] MEDS: lactobacillus rhamnosus 10,000 MMU CELLS/CAPSULE PO SCH ×2 (08:37→19:01)
[2021-10-02] MEDS: thiamine 100mg tablet PO SCH (08:37)
[2021-10-02] MEDS: folic acid 1mg tablet PO SCH (08:37)
[2021-10-02] MEDS: nicotine 7mg patch - 24hr TD SCH (08:38)
[2021-10-02] MEDS: nystatin 15 GM powder TP SCH ×3 (08:39→20:03)
[2021-10-02 09:18] LABS: ANISOCYTOSIS 3+; MICROCYTOSIS 1+; PLATELET ESTIMATE INCREASED; POIKILOCYTOSIS 2+
[2021-10-02 09:19] LABS: BURR CELLS 2+; ELLIPTOCYTES FEW
[2021-10-02 09:20] LABS: HYPOCHROMASIA 1+; SCHISTOCYTES FEW
[2021-10-02 09:21] LABS: ACANTHOCYTES 2+
[2021-10-02 11:00] VITALS: BP 103/61
--- NOTE | 2021-10-02 11:54 | NUR ---
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 Pt pending thoracentesis per physician notes. Pt currently on a heart healthy diet, documented with mostly 50% PO intake throughout LOS though up to 75-100% PO intake at breakfast this morning. LBM 10/01. No nutrition intervention implemented at this time. Will continue to follow. Recommendations: 1) Continue heart healthy diet 2) Monitor need for ONS pending further trends in PO intake 3) Bowel care PRN 4) Scaled weight this admit; weekly scaled weights thereafter Addendum: 10/02/21 at [address] Amended: Links added.
[2021-10-02 15:00] VITALS: BP 120/69
[2021-10-02 18:00] VITALS: BP 117/76
[2021-10-02] MEDS: gabapentin 300mg capsule PO SCH (20:03)
[2021-10-02] MEDS: atorvastatin 20mg tablet PO SCH (20:03)
[2021-10-02 22:00] VITALS: BP 100/65
[2021-10-03 02:00] VITALS: BP 87/58
[2021-10-03] MEDS: HYDROcodone/acetaminophen 5mg/325mg tablet PO PRN ×3 (03:43→16:47)
[2021-10-03 06:00] VITALS: BP 134/74
--- NOTE | 2021-10-03 06:10 | NUR ---
Patient in room PCU 3021. I have received report from Martha RN and had the opportunity to ask questions and assume patient care.
[2021-10-03 07:07] LABS: HEMOGLOBIN 9.5 g/dl (14.0-17.9); PLATELET COUNT 649 X10'3 (140-440); WHITE BLOOD COUNT 8.6 X10'3 (4.5-11.0)
[2021-10-03 07:10] LABS: BASOPHILS % (AUTO) 0.4 % (0-1); EOSINOPHILS # (AUTO) 0.4 X10'3 (0-0.9); EOSINOPHILS % (AUTO) 4.2 % (0-6); HEMATOCRIT 29.4 % (42.0-52.0); LYMPHOCYTES # (AUTO) 1.4 X10'3 (1.1-4.8); LYMPHOCYTES % (AUTO) 15.8 % (21-51); MEAN CORPUSCULAR HGB CONC 32.4 g/dL (33.0-36.5); MEAN CORPUSCULAR VOLUME 80.3 FL (78-98); MEAN PLATELET VOLUME 8.3 FL (7.4-10.4); MONOCYTES # (AUTO) 0.5 X10'3 (0-0.9); MONOCYTES % (AUTO) 6.1 % (2-12); NEUTROPHILS # (AUTO) 6.3 X10'3 (1.8-7.7); NEUTROPHILS % (AUTO) 73.5 % (42-75); RED BLOOD COUNT 3.66 X10'6 (4.70-6.10); RED CELL DISTRIBUTION WIDTH 20.8 % (11.5-14.5)
[2021-10-03 07:32] LABS: ALBUMIN 2.5 G/DL (3.4-5.0); ANION GAP 10 (8-16); BLOOD UREA NITROGEN 17 MG/DL (7-18); BUN/CREATININE RATIO 16.8 (5.4-32.0); CHLORIDE 104 MMOL/L (99-107); CREATININE 1.01 MG/DL (0.60-1.10); GLUCOSE 90 MG/DL (70-104); MAGNESIUM 1.5 MG/DL (1.5-2.4); POTASSIUM 4.2 MMOL/L (3.5-5.1); SODIUM 137 MMOL/L (135-145); eGFR 73 ML/MIN
[2021-10-03] MEDS: spironolactone 25 MG tablet PO SCH (08:00)
[2021-10-03] MEDS: nicotine 7mg patch - 24hr TD SCH ×3 (08:00→16:29)
[2021-10-03] MEDS: metoprolol succinate 25mg (24-HOUR) SR. Tablet PO SCH (08:00)
[2021-10-03] MEDS: losartan 25mg tablet PO SCH (08:00)
[2021-10-03] MEDS: K and/or MAG REPLACEMENT MC SCH ×2 (08:00→20:00)
[2021-10-03] MEDS: levoFLOXACIN-Levaquin 500mg/D5 100 ML IV SCH (08:21)
[2021-10-03] MEDS: nystatin 15 GM powder TP SCH ×3 (08:22→20:46)
[2021-10-03] MEDS: lactobacillus rhamnosus 10,000 MMU CELLS/CAPSULE PO SCH ×2 (08:23→20:46)
[2021-10-03] MEDS: thiamine 100mg tablet PO SCH (08:23)
[2021-10-03] MEDS: folic acid 1mg tablet PO SCH (08:23)
[2021-10-03] MEDS: amiodarone 200mg tablet PO SCH ×2 (08:23→20:00)
[2021-10-03] MEDS: pantoprazole 40mg Tablet.DR PO SCH (08:23)
[2021-10-03] MEDS: aspirin 81mg, enteric-coated 1 TAB TABLET.DR PO SCH (08:24)
[2021-10-03 11:00] VITALS: BP 115/51
[2021-10-03 15:00] VITALS: BP 94/59
[2021-10-03 18:00] VITALS: BP 112/77
--- NOTE | 2021-10-03 18:16 | NUR ---
Problems reprioritized. Patient report given, questions answered & plan of care reviewed with Ni RN. patient stable at the transfer of care.
[2021-10-03] MEDS: gabapentin 300mg capsule PO SCH (20:46)
[2021-10-03] MEDS: atorvastatin 20mg tablet PO SCH (20:46)
[2021-10-03 22:00] VITALS: BP 94/69
[2021-10-04 02:00] VITALS: BP 98/68
[2021-10-04] MEDS: HYDROcodone/acetaminophen 5mg/325mg tablet PO PRN ×4 (03:45→20:29)
[2021-10-04 06:00] VITALS: BP 88/64
--- NOTE | 2021-10-04 06:03 | NUR ---
Patient in room PCU 3021. I have received report from Martha RN and had the opportunity to ask questions and assume patient care.
[2021-10-04] MEDS: metoprolol succinate 25mg (24-HOUR) SR. Tablet PO SCH (08:00)
[2021-10-04] MEDS: apixaban 5mg tablet PO SCH ×3 (08:00→20:30)
[2021-10-04] MEDS: K and/or MAG REPLACEMENT MC SCH ×2 (08:00→20:00)
[2021-10-04] MEDS: spironolactone 25 MG tablet PO SCH (08:00)
[2021-10-04] MEDS: nystatin 15 GM powder TP SCH ×3 (08:00→20:31)
[2021-10-04] MEDS: losartan 25mg tablet PO SCH (08:00)
[2021-10-04 08:34] LABS: MAGNESIUM 1.6 MG/DL (1.5-2.4); POTASSIUM 4.3 MMOL/L (3.5-5.1)
[2021-10-04] MEDS: aspirin 81mg, enteric-coated 1 TAB TABLET.DR PO SCH (10:29)
[2021-10-04] MEDS: folic acid 1mg tablet PO SCH (10:30)
[2021-10-04] MEDS: atorvastatin 20mg tablet PO SCH ×2 (10:30→20:29)
[2021-10-04] MEDS: thiamine 100mg tablet PO SCH (10:50)
[2021-10-04] MEDS: pantoprazole 40mg Tablet.DR PO SCH (10:50)
[2021-10-04] MEDS: lactobacillus rhamnosus 10,000 MMU CELLS/CAPSULE PO SCH ×2 (10:50→20:28)
[2021-10-04] MEDS: amiodarone 200mg tablet PO SCH ×2 (10:50→20:29)
[2021-10-04 11:00] VITALS: BP 95/67
[2021-10-04] MEDS: levoFLOXACIN 500mg tablet PO SCH (12:01)
[2021-10-04] MEDS: midodrine 5mg tablet PO SCH ×2 (12:01→16:10)
[2021-10-04] MEDS: furosemide 20 MG/2 ML vial IV SCH (12:01)
[2021-10-04 17:45] VITALS: BP 88/61
[2021-10-04 18:00] VITALS: BP 98/61
--- NOTE | 2021-10-04 18:14 | NUR ---
Problems reprioritized. Patient report given, questions answered & plan of care reviewed with Prudence RN, patient stable at transfer of care.
--- NOTE | 2021-10-04 18:29 | NUR ---
Patient in room PCU 3021. I have received report from JESSA NAQVI and had the opportunity to ask questions and assume patient care.
[2021-10-04] MEDS: gabapentin 300mg capsule PO SCH (20:28)
[2021-10-04 22:00] VITALS: BP 109/70
[2021-10-05] VITALS (7 sets, daily range): BP systolic 86–106; BP diastolic 58–68
[2021-10-05] MEDS: HYDROcodone/acetaminophen 5mg/325mg tablet PO PRN ×5 (00:50→22:26)
--- NOTE | 2021-10-05 06:11 | NUR ---
Problems reprioritized. Patient report given, questions answered & plan of care reviewed with VEENA NAQVI.
--- NOTE | 2021-10-05 06:29 | NUR ---
Patient in room PCU 3021. I have received report from Bonnie NAQVI and had the opportunity to ask questions and assume patient care. Patient resting in bed in no acute distress.
[2021-10-05 07:29] LABS: BASOPHILS # (AUTO) 0.1 X10'3 (0-0.2); EOSINOPHILS # (AUTO) 0.5 X10'3 (0-0.9); EOSINOPHILS % (AUTO) 5.9 % (0-6); HEMATOCRIT 27.4 % (42.0-52.0); LYMPHOCYTES # (AUTO) 1.5 X10'3 (1.1-4.8); LYMPHOCYTES % (AUTO) 19.4 % (21-51); MEAN CORPUSCULAR HEMOGLOBIN 26.4 PG (27.0-31.0); MEAN CORPUSCULAR VOLUME 79.7 FL (78-98); MEAN PLATELET VOLUME 8.5 FL (7.4-10.4); MONOCYTES # (AUTO) 0.6 X10'3 (0-0.9); MONOCYTES % (AUTO) 8.1 % (2-12); NEUTROPHILS # (AUTO) 5.2 X10'3 (1.8-7.7); NEUTROPHILS % (AUTO) 65.6 % (42-75); PLATELET COUNT 585 X10'3 (140-440); RED BLOOD COUNT 3.43 X10'6 (4.70-6.10); RED CELL DISTRIBUTION WIDTH 20.4 % (11.5-14.5)
[2021-10-05 07:51] LABS: ALANINE AMINOTRANSFERASE 35 U/L (12-78); ALBUMIN 2.5 G/DL (3.4-5.0); ALBUMIN/GLOBULIN RATIO 0.7 (1.1-1.5); ALKALINE PHOSPHATASE 121 IU/L (46-116); ANION GAP 10 (8-16); ASPARTATE AMINO TRANSFERASE 35 U/L (10-37); BILIRUBIN,TOTAL 0.3 MG/DL (0.1-1.0); BLOOD UREA NITROGEN 19 MG/DL (7-18); BUN/CREATININE RATIO 19.8 (5.4-32.0); CALCIUM 8.6 MG/DL (8.5-10.1); CHLORIDE 104 MMOL/L (99-107); CREATININE 0.96 MG/DL (0.60-1.10); GLUCOSE 86 MG/DL (70-104); MAGNESIUM 1.5 MG/DL (1.5-2.4); SODIUM 136 MMOL/L (135-145); TOTAL CARBON DIOXIDE 21.7 MMOL/L (24-32); TOTAL PROTEIN 6.3 G/DL (6.4-8.2); eGFR 78 ML/MIN
[2021-10-05] MEDS: spironolactone 25 MG tablet PO SCH (08:00)
[2021-10-05] MEDS: furosemide 20 MG/2 ML vial IV SCH (08:00)
[2021-10-05] MEDS: metoprolol succinate 25mg (24-HOUR) SR. Tablet PO SCH ×2 (08:00→09:20)
[2021-10-05] MEDS: losartan 25mg tablet PO SCH (08:00)
[2021-10-05] MEDS: K and/or MAG REPLACEMENT MC SCH ×2 (08:00→18:53)
[2021-10-05] MEDS: aspirin 81mg, enteric-coated 1 TAB TABLET.DR PO SCH (08:57)
[2021-10-05] MEDS: thiamine 100mg tablet PO SCH (08:57)
[2021-10-05] MEDS: amiodarone 200mg tablet PO SCH ×2 (08:58→20:11)
[2021-10-05] MEDS: folic acid 1mg tablet PO SCH (08:58)
[2021-10-05] MEDS: midodrine 5mg tablet PO SCH ×3 (08:58→16:12)
[2021-10-05] MEDS: pantoprazole 40mg Tablet.DR PO SCH (08:58)
[2021-10-05] MEDS: lactobacillus rhamnosus 10,000 MMU CELLS/CAPSULE PO SCH ×2 (08:58→20:11)
[2021-10-05] MEDS: apixaban 5mg tablet PO SCH ×2 (08:59→20:11)
[2021-10-05] MEDS: nystatin 15 GM powder TP SCH ×3 (08:59→20:12)
[2021-10-05] MEDS: nicotine 7mg patch - 24hr TD SCH (09:00)
[2021-10-05 09:04] LABS: PLATELET ESTIMATE INCREASED
[2021-10-05 09:05] LABS: ACANTHOCYTES 2+; ANISOCYTOSIS 3+; BURR CELLS 2+; ELLIPTOCYTES FEW; HYPOCHROMASIA 1+; MICROCYTOSIS 1+; POLYCHROMASIA 1+; SCHISTOCYTES FEW
--- NOTE | 2021-10-05 09:12 | NUR ---
Patient requested nicotine patch to be removed. Nicotine patch frm today 10/05 removed at 0913 .
--- NOTE | 2021-10-05 09:22 | NUR ---
PER JANE Hughes at bedside ok to give metoprolol even though BP is 86/58 . he would like to hold losatran, lasix, and aldactone still due to low BP
--- NOTE | 2021-10-05 10:17 | NUR ---
Reassessment Pt currently on a heart healthy diet, documented with mostly 75%% PO intake throughout LOS though up to 100% PO intake since 10/04. Overall meeting est nutrient needs at this time. LBM 10/01. No nutrition intervention implemented at this time. Will continue to follow. Recommendations: 1) Continue heart healthy diet 2) Monitor need for ONS pending further trends in PO intake 3) Bowel care PRN 4) Scaled weight this admit; weekly scaled weights thereafter Addendum: 10/05/21 at [address] Amended: Links added.
[2021-10-05] MEDS: LIDOcaine 5% patch TP SCH (12:23)
[2021-10-05] MEDS: levoFLOXACIN 500mg tablet PO SCH (12:23)
--- NOTE | 2021-10-05 18:19 | NUR ---
Problems reprioritized. Patient report given, questions answered & plan of care reviewed with Benson NAQVI . Patient resting in bed in no acute distress.
[2021-10-05] MEDS: atorvastatin 20mg tablet PO SCH (20:11)
[2021-10-05] MEDS: gabapentin 300mg capsule PO SCH (20:11)
--- NOTE | 2021-10-06 06:26 | NUR ---
Patient in room U 3021. I have received report from Benson NAQVI and had the opportunity to ask questions and assume patient care. Patient resting in bed in no acute distress.
[2021-10-06 06:53] LABS: BASOPHILS # (AUTO) 0.1 X10'3 (0-0.2); BASOPHILS % (AUTO) 0.8 % (0-1); EOSINOPHILS # (AUTO) 0.4 X10'3 (0-0.9); EOSINOPHILS % (AUTO) 5.3 % (0-6); HEMATOCRIT 28.6 % (42.0-52.0); HEMOGLOBIN 9.4 g/dl (14.0-17.9); LYMPHOCYTES # (AUTO) 1.2 X10'3 (1.1-4.8); LYMPHOCYTES % (AUTO) 16.2 % (21-51); MEAN CORPUSCULAR HEMOGLOBIN 26.2 PG (27.0-31.0); MEAN CORPUSCULAR HGB CONC 32.9 g/dL (33.0-36.5); MEAN CORPUSCULAR VOLUME 79.5 FL (78-98); MEAN PLATELET VOLUME 8.4 FL (7.4-10.4); MONOCYTES # (AUTO) 0.6 X10'3 (0-0.9); MONOCYTES % (AUTO) 8.1 % (2-12); NEUTROPHILS # (AUTO) 5.2 X10'3 (1.8-7.7); NEUTROPHILS % (AUTO) 69.6 % (42-75); PLATELET COUNT 572 X10'3 (140-440); RED CELL DISTRIBUTION WIDTH 20.5 % (11.5-14.5); WHITE BLOOD COUNT 7.4 X10'3 (4.5-11.0)
[2021-10-06 07:00] VITALS: BP 101/65
--- NOTE | 2021-10-06 07:04 | NUR ---
Problems reprioritized. Patient report given, questions answered & plan of care reviewed with Gabby. Addendum: 10/06/21 at 0705 by Paulie Linares RN Amended: Links added.
[2021-10-06 07:33] LABS: ALANINE AMINOTRANSFERASE 22 U/L (12-78); ALBUMIN 2.6 G/DL (3.4-5.0); ALBUMIN/GLOBULIN RATIO 0.7 (1.1-1.5); ALKALINE PHOSPHATASE 130 IU/L (46-116); ANION GAP 10 (8-16); ASPARTATE AMINO TRANSFERASE 29 U/L (10-37); BILIRUBIN,TOTAL 0.3 MG/DL (0.1-1.0); BLOOD UREA NITROGEN 17 MG/DL (7-18); BUN/CREATININE RATIO 18.7 (5.4-32.0); CALCIUM 9.3 MG/DL (8.5-10.1); CHLORIDE 103 MMOL/L (99-107); CREATININE 0.91 MG/DL (0.60-1.10); GLUCOSE 90 MG/DL (70-104); MAGNESIUM 1.7 MG/DL (1.5-2.4); POTASSIUM 4.3 MMOL/L (3.5-5.1); SODIUM 136 MMOL/L (135-145); TOTAL PROTEIN 6.4 G/DL (6.4-8.2); eGFR 83 ML/MIN
[2021-10-06] MEDS: furosemide 20 MG/2 ML vial IV SCH (08:00)
[2021-10-06] MEDS: K and/or MAG REPLACEMENT MC SCH ×2 (08:00→18:57)
[2021-10-06] MEDS: spironolactone 25 MG tablet PO SCH (08:00)
[2021-10-06] MEDS: losartan 25mg tablet PO SCH (08:00)
[2021-10-06] MEDS: aspirin 81mg, enteric-coated 1 TAB TABLET.DR PO SCH (09:07)
[2021-10-06] MEDS: HYDROcodone/acetaminophen 5mg/325mg tablet PO PRN ×4 (09:07→23:02)
[2021-10-06] MEDS: amiodarone 200mg tablet PO SCH ×2 (09:07→20:32)
[2021-10-06] MEDS: apixaban 5mg tablet PO SCH ×2 (09:07→20:32)
[2021-10-06] MEDS: thiamine 100mg tablet PO SCH (09:07)
[2021-10-06] MEDS: midodrine 5mg tablet PO SCH ×3 (09:07→16:28)
[2021-10-06] MEDS: nystatin 15 GM powder TP SCH ×3 (09:08→20:33)
[2021-10-06] MEDS: metoprolol succinate 25mg (24-HOUR) SR. Tablet PO SCH (09:08)
[2021-10-06] MEDS: pantoprazole 40mg Tablet.DR PO SCH (09:08)
[2021-10-06] MEDS: lactobacillus rhamnosus 10,000 MMU CELLS/CAPSULE PO SCH ×2 (09:08→20:33)
[2021-10-06] MEDS: folic acid 1mg tablet PO SCH (09:08)
[2021-10-06] MEDS: LIDOcaine 5% patch TP SCH (09:12)
[2021-10-06 11:00] VITALS: BP 128/72
[2021-10-06] MEDS: levoFLOXACIN 500mg tablet PO SCH (12:22)
[2021-10-06 15:00] VITALS: BP 95/62
--- NOTE | 2021-10-06 16:05 | NUR ---
Problems reprioritized. Patient report given, questions answered & plan of care reviewed with Javier NAQVI. Patient resting in bed in no acute distress
--- NOTE | 2021-10-06 16:06 | NUR ---
Patient in room U 3021. I have received report from DRISS Thomas and had the opportunity to ask questions and assume patient care. Addendum: 10/06/21 at 1800 by Fabio Castle RN I agree with previous RN's assessments.
--- NOTE | 2021-10-06 18:23 | NUR ---
Problems reprioritized. Patient report given, questions answered & plan of care reviewed with DRISS Elam.
[2021-10-06 19:00] VITALS: BP 105/71
[2021-10-06] MEDS: atorvastatin 20mg tablet PO SCH (20:33)
[2021-10-06] MEDS: gabapentin 300mg capsule PO SCH (20:33)
[2021-10-06 22:00] VITALS: BP 103/67
[2021-10-07] VITALS (7 sets, daily range): BP systolic 91–114; BP diastolic 60–80
[2021-10-07] MEDS: HYDROcodone/acetaminophen 5mg/325mg tablet PO PRN ×5 (04:08→20:53)
--- NOTE | 2021-10-07 06:35 | NUR ---
Change of shift report given to Martha NAQVI Addendum: 10/07/21 at 0635 by Marialuisa Maciel RN Amended: Links added.
[2021-10-07 07:54] LABS: BASOPHILS # (AUTO) 0.1 X10'3 (0-0.2); EOSINOPHILS # (AUTO) 0.3 X10'3 (0-0.9); EOSINOPHILS % (AUTO) 5.3 % (0-6); HEMATOCRIT 29.1 % (42.0-52.0); HEMOGLOBIN 9.4 g/dl (14.0-17.9); LYMPHOCYTES # (AUTO) 1.4 X10'3 (1.1-4.8); LYMPHOCYTES % (AUTO) 22.1 % (21-51); MEAN CORPUSCULAR HGB CONC 32.2 g/dL (33.0-36.5); MEAN CORPUSCULAR VOLUME 80.7 FL (78-98); MEAN PLATELET VOLUME 8.3 FL (7.4-10.4); MONOCYTES # (AUTO) 0.6 X10'3 (0-0.9); MONOCYTES % (AUTO) 9.2 % (2-12); NEUTROPHILS # (AUTO) 3.9 X10'3 (1.8-7.7); NEUTROPHILS % (AUTO) 62.4 % (42-75); PLATELET COUNT 530 X10'3 (140-440); RED CELL DISTRIBUTION WIDTH 20.6 % (11.5-14.5); WHITE BLOOD COUNT 6.3 X10'3 (4.5-11.0)
[2021-10-07] MEDS: K and/or MAG REPLACEMENT MC SCH ×2 (08:00→20:00)
[2021-10-07 08:29] LABS: ALANINE AMINOTRANSFERASE 22 U/L (12-78); ALBUMIN 2.7 G/DL (3.4-5.0); ALBUMIN/GLOBULIN RATIO 0.7 (1.1-1.5); ALKALINE PHOSPHATASE 135 IU/L (46-116); ANION GAP 11 (8-16); ASPARTATE AMINO TRANSFERASE 22 U/L (10-37); BILIRUBIN,TOTAL 0.4 MG/DL (0.1-1.0); BLOOD UREA NITROGEN 14 MG/DL (7-18); BUN/CREATININE RATIO 14.6 (5.4-32.0); CALCIUM 8.7 MG/DL (8.5-10.1); CHLORIDE 102 MMOL/L (99-107); CREATININE 0.96 MG/DL (0.60-1.10); GLUCOSE 102 MG/DL (70-104); MAGNESIUM 1.6 MG/DL (1.5-2.4); SODIUM 135 MMOL/L (135-145); TOTAL CARBON DIOXIDE 22.3 MMOL/L (24-32); TOTAL PROTEIN 6.7 G/DL (6.4-8.2); eGFR 78 ML/MIN
[2021-10-07] MEDS: midodrine 5mg tablet PO SCH ×3 (08:31→15:44)
[2021-10-07] MEDS: metoprolol succinate 25mg (24-HOUR) SR. Tablet PO SCH (08:31)
[2021-10-07] MEDS: thiamine 100mg tablet PO SCH (08:31)
[2021-10-07] MEDS: folic acid 1mg tablet PO SCH (08:31)
[2021-10-07] MEDS: amiodarone 200mg tablet PO SCH ×2 (08:32→20:53)
[2021-10-07] MEDS: furosemide 20 MG/2 ML vial IV SCH (08:32)
[2021-10-07] MEDS: aspirin 81mg, enteric-coated 1 TAB TABLET.DR PO SCH (08:32)
[2021-10-07] MEDS: losartan 25mg tablet PO SCH (08:33)
[2021-10-07] MEDS: lactobacillus rhamnosus 10,000 MMU CELLS/CAPSULE PO SCH ×2 (08:34→20:52)
[2021-10-07] MEDS: apixaban 5mg tablet PO SCH ×2 (08:34→20:52)
[2021-10-07] MEDS: spironolactone 25 MG tablet PO SCH (08:34)
[2021-10-07] MEDS: pantoprazole 40mg Tablet.DR PO SCH (08:34)
[2021-10-07] MEDS: LIDOcaine 5% patch TP SCH (08:35)
[2021-10-07] MEDS: nystatin 15 GM powder TP SCH ×3 (08:35→21:01)
[2021-10-07] MEDS ORDERED: magnesium hydroxide 30ml (MOM) UD suspension PO PRN (11:30)
[2021-10-07] MEDS ORDERED: polyethylene glycol 3350 17gm powd pack PO PRN (11:30)
[2021-10-07] MEDS: levoFLOXACIN 500mg tablet PO SCH (12:09)
--- NOTE | 2021-10-07 12:56 | NUR ---
patient refused BRENDA hose stating "they look too hunt for me and I wouldn't wear them long anyways."Pt educated on benefits of BRENDA hose and still refused. Will try again later and continue education.
--- NOTE | 2021-10-07 18:20 | NUR ---
Problems reprioritized. Patient report given, questions answered & plan of care reviewed with Abdi NAQVI . Patient resting in bed in no acute distress.
[2021-10-07] MEDS: atorvastatin 20mg tablet PO SCH (20:52)
[2021-10-07] MEDS: docusate sod 100mg capsule PO SCH (20:52)
[2021-10-07] MEDS: gabapentin 300mg capsule PO SCH (20:52)
[2021-10-08 02:00] VITALS: BP 113/68
[2021-10-08 06:00] VITALS: BP 93/62
--- NOTE | 2021-10-08 06:44 | NUR ---
Patient in room PCU 3021. I have received report from JULIA Patton and had the opportunity to ask questions and assume patient care.
[2021-10-08 07:04] LABS: BASOPHILS # (AUTO) 0.1 X10'3 (0-0.2); BASOPHILS % (AUTO) 0.9 % (0-1); EOSINOPHILS # (AUTO) 0.3 X10'3 (0-0.9); EOSINOPHILS % (AUTO) 5.2 % (0-6); HEMATOCRIT 28.6 % (42.0-52.0); HEMOGLOBIN 9.5 g/dl (14.0-17.9); LYMPHOCYTES # (AUTO) 1.5 X10'3 (1.1-4.8); LYMPHOCYTES % (AUTO) 23.6 % (21-51); MEAN CORPUSCULAR HEMOGLOBIN 26.2 PG (27.0-31.0); MEAN CORPUSCULAR HGB CONC 33.2 g/dL (33.0-36.5); MEAN CORPUSCULAR VOLUME 78.9 FL (78-98); MEAN PLATELET VOLUME 8.5 FL (7.4-10.4); MONOCYTES # (AUTO) 0.6 X10'3 (0-0.9); MONOCYTES % (AUTO) 9.3 % (2-12); PLATELET COUNT 532 X10'3 (140-440); RED BLOOD COUNT 3.62 X10'6 (4.70-6.10); RED CELL DISTRIBUTION WIDTH 20.2 % (11.5-14.5); WHITE BLOOD COUNT 6.5 X10'3 (4.5-11.0)
[2021-10-08 07:32] LABS: ALANINE AMINOTRANSFERASE 19 U/L (12-78); ALBUMIN 2.8 G/DL (3.4-5.0); ALBUMIN/GLOBULIN RATIO 0.7 (1.1-1.5); ALKALINE PHOSPHATASE 142 IU/L (46-116); ANION GAP 11 (8-16); ASPARTATE AMINO TRANSFERASE 31 U/L (10-37); BILIRUBIN,TOTAL 0.3 MG/DL (0.1-1.0); BLOOD UREA NITROGEN 16 MG/DL (7-18); BUN/CREATININE RATIO 18.4 (5.4-32.0); CALCIUM 9.1 MG/DL (8.5-10.1); CHLORIDE 103 MMOL/L (99-107); CREATININE 0.87 MG/DL (0.60-1.10); GLUCOSE 87 MG/DL (70-104); POTASSIUM 4.1 MMOL/L (3.5-5.1); SODIUM 136 MMOL/L (135-145); TOTAL CARBON DIOXIDE 22.3 MMOL/L (24-32); TOTAL PROTEIN 6.7 G/DL (6.4-8.2); eGFR 87 ML/MIN
[2021-10-08] MEDS: losartan 25mg tablet PO SCH (07:48)
[2021-10-08] MEDS: metoprolol succinate 25mg (24-HOUR) SR. Tablet PO SCH (07:50)
[2021-10-08] MEDS: docusate sod 100mg capsule PO SCH (07:54)
[2021-10-08] MEDS: lactobacillus rhamnosus 10,000 MMU CELLS/CAPSULE PO SCH (07:55)
[2021-10-08] MEDS: aspirin 81mg, enteric-coated 1 TAB TABLET.DR PO SCH (07:55)
[2021-10-08] MEDS: midodrine 5mg tablet PO SCH ×2 (07:55→12:52)
[2021-10-08] MEDS: folic acid 1mg tablet PO SCH (07:55)
[2021-10-08] MEDS: amiodarone 200mg tablet PO SCH (07:55)
[2021-10-08] MEDS: apixaban 5mg tablet PO SCH (07:55)
[2021-10-08] MEDS: thiamine 100mg tablet PO SCH (07:55)
[2021-10-08] MEDS: pantoprazole 40mg Tablet.DR PO SCH (07:55)
[2021-10-08] MEDS: LIDOcaine 5% patch TP SCH (07:58)
[2021-10-08] MEDS ORDERED: furosemide 20MG tablet PO SCH (08:00)
[2021-10-08] MEDS: spironolactone 25 MG tablet PO SCH (08:00)
[2021-10-08] MEDS: HYDROcodone/acetaminophen 5mg/325mg tablet PO PRN ×2 (08:05→12:52)
[2021-10-08] MEDS: K and/or MAG REPLACEMENT MC SCH (08:09)
[2021-10-08] MEDS: nystatin 15 GM powder TP SCH (08:09)
[2021-10-08] MEDS ORDERED: AMIO200T67 PO (09:40)
[2021-10-08] MEDS ORDERED: MIDO5TAB4 PO (09:40)
[2021-10-08 11:00] VITALS: BP 107/71
== END 2021-10-08 14:57 | disposition home health service (06) | DRG 871 ==
LOC: ER 06:24 → ED HOLD 08:49 → EDBEDREQ 09-29 14:27 → PCU 3S 09-29 16:35
PROVIDERS: ADMIT Internal Medicine; ATTEND Internal Medicine
DX: A41.9 Sepsis, unspecified organism (principal); J18.9 Pneumonia, unspecified organism; J96.01 Acute respiratory failure with hypoxia; I50.23 Acute on chronic systolic (congestive) heart failure; I50.1 Left ventricular failure, unspecified; I11.0 Hypertensive heart disease with heart failure; E78.5 Hyperlipidemia, unspecified; K21.9 Gastro-esophageal reflux disease without esophagitis; I95.9 Hypotension, unspecified; G89.29 Other chronic pain; M54.50 Low back pain, unspecified; I48.0 Paroxysmal atrial fibrillation; I73.9 Peripheral vascular disease, unspecified; D64.9 Anemia, unspecified; I25.10 Atherosclerotic heart disease of native coronary artery without angina pectoris; R49.0 Dysphonia; G62.9 Polyneuropathy, unspecified; I35.0 Nonrheumatic aortic (valve) stenosis; Z79.01 Long term (current) use of anticoagulants; Z86.73 Personal history of transient ischemic attack (TIA), and cerebral infarction without residual deficits; Z87.891 Personal history of nicotine dependence; Z95.0 Presence of cardiac pacemaker; Z95.1 Presence of aortocoronary bypass graft; Z88.0 Allergy status to penicillin; Z71.6 Tobacco abuse counseling
CPT/HCPCS: 36415; 71045; 80048; 80053; 83735; 83880; 84132; 84484; 85008; 85025; 87081; 93005; 93306; 96374; 96375; 97110; 97116; 97161; 97530; 99285; G0378; J1940; J1956; J2270